=== PATIENT | male | born 1950 | race Caucasian/White ===

== ENCOUNTER 2020-06-30 13:29 | Emergency (ER) | payer OTHER, SELFPAY ==
[2020-06-30] VITALS (23 sets, daily range): BP systolic 137–177; BP diastolic 57–86; PULSE 70–88; RESP 11–24; TEMP 36.7–36.8; O2SAT 81–99
--- NOTE | ~2020-06-30 | CT_ITS ---
EXAMINATION: CT brain wo con DATE: 06/30/2020 14:56 INDICATION: Loss of balance. Fall. TECHNIQUE: Computed tomography (CT) of the head was performed without intravenous contrast. The mA wa s adjusted according to patient size. Iterative reconstruction technique was employed. The dose-lengt h product was 681.00 mGy-cm. COMPARISON: None FINDINGS: There are scattered areas of low attenuation in the cerebral white matter, which is within normal limits for the patient's age. There is no intracranial hemorrhage, acute infarction, or abnorm al intracranial mass lesion. The ventricles are enlarged for the degree of diffuse brain volume loss. There is mild mucosal thickening in the paranasal sinuses. The mastoid air cells are normal. There a re likely changes of ocular lens replacement surgeries. There are changes of right-sided scleral band ing procedure. IMPRESSION: 1. Ventriculomegaly. Correlate clinically for normal pressure hydrocephalus. Reviewed, dictated and finalized at location A. MOTIVE MACHINIST
--- NOTE | ~2020-06-30 | XR_ITS ---
EXAMINATION: XR knee RT 3V DATE: 06/30/2020 14:59 INDICATION: Right knee pain. TECHNIQUE: 3 views of right knee were obtained. COMPARISON: None. FINDINGS: Bone alignment is normal. No fracture. There is mild tricompartmental osteoarthritis charac terized by tiny marginal osteophytes. There is a small knee joint effusion. IMPRESSION: 1. Mild right knee osteoarthritis. 2. Small right knee joint effusion. Reviewed, dictated and finalized at location A. D PROTECTIVE INVESTIGATOR
--- NOTE | ~2020-06-30 | XR_ITS ---
EXAMINATION: XR knee LT 3V DATE: 06/30/2020 14:59 INDICATION: Left knee pain. TECHNIQUE: 3 views of left knee were obtained. COMPARISON: None. FINDINGS: Bone alignment is normal. No fracture. There is mild osteoarthritis of medial compartment c haracterized by a tiny marginal osteophyte. There is a small knee joint effusion. IMPRESSION: 1. Mild left knee osteoarthritis. 2. Small left knee joint effusion. Reviewed, dictated and finalized at location A. RETTE MACHINE FILLER
--- NOTE | 2020-06-30 14:39 | PC.NURSE ---
asked pt for urine sample, pt stated he was unable to go at this time. left urinal at bedside
[2020-06-30 14:42] LABS: Basophils Absolute Auto 0.1 K/mm3 (0.0-0.1); Basophils Percent Auto 0.7 % (0.2-1.2); Eosinophils Absolute Auto 0.1 K/mm3 (0-0.3); Eosinophils Percent Auto 1.2 % (0-4.4); Hematocrit 41.8 % (42.0-52.0); Hemoglobin 13.5 g/dL (14.0-18.0); Immature Granulocyte Absolute 0.03 K/mm3 (0.00-0.031); Immature Granulocyte Percent A 0.3 % (0-0.5); Lymphocytes Absolute Auto 0.84 K/mm3 (0.9-3.2); Lymphocytes Percent Auto 8.3 % (18.3-44.2); Mean Corpuscular HGB Conc 32.3 g/dl (32-36); Mean Corpuscular Volume 86.7 fl (80-100); Mean Platelet Volume 9.8 fl (7.4-10.4); Monocytes Absolute Auto 0.7 K/mm3 (0.1-0.6); Monocytes Percent Auto 6.4 % (2.6-8.5); Neutrophils Absolute Auto 8.4 K/mm3 (1.3-6.7); Neutrophils Percent Auto 83.1 % (45.5-73.1); Platelet Count Result 228 k/mm3 (150-375); Red Blood Count 4.82 M/mm3 (4.6-6.20); White Blood Count 10.1 K/mm3 (4.5-10.0)
--- NOTE | 2020-06-30 14:42 | ED.FALL ---
HPI - Fall General Chief Complaint: Extremity Injury, Lower Stated Complaint: knee pain/fall Time Seen by Provider: 06/30/20 13:35 Source: family Mode of arrival: EMS Limitations: physical limitation History of Present Illness HPI Narrative: 69-year-old male Complains of falling yesterday and hurting his leg however is the primary historian Appears that he has been having progressive difficulty with weakness and ambulation and falling for weeks if not months, has been seeing his doctor in [place], and has been going to PT and OT He has a walker which she usually does not use Yesterday he fell twice, once while he was standing next to his computer holding onto a chair and then just fell onto the floor of the room and a second time when he was walking and fell and bruised his right knee Does not sound like any of these episodes are precipitated by any kind of abrupt vertigo or dizziness or syncope His says there is some kind of family history of leg problems but she does not know what it is Fall witnessed: yes, by family Related Data Home Medications Medication Instructions Recorded Confirmed atorvastatin 06/30/20 cilostazol mg 06/30/20 empagliflozin [Jardiance] 25 mg PO DAILY 06/30/20 06/30/20 glipizide mg 06/30/20 hydralazine 06/30/20 insulin degludec [Tresiba 27 unit SUBCUT 06/30/20 FlexTouch U-100] lisinopril 06/30/20 Allergies Allergy/AdvReac Type Severity Reaction Status Date / Time No Known Allergies Unverified 06/30/20 13:41 Review of Systems Review of Systems: All systems reviewed & are unremarkable except as noted in HPI and below Constitutional: Constitutional: Denies chills, Reports fatigue, Denies fever(s), Denies headache(s) and Reports weakness Eyes: Eyes: Reports no additional eye complaints and Denies change in vision ENT: Denies headache(s), Denies epistaxis, Denies nasal congestion and Denies sore throat Cardiovascular: Cardiovascular: Denies chest pain, Denies leg edema, Denies palpitations and Denies dyspnea Respiratory: Respiratory: Denies cough, Denies dyspnea and Denies wheezing Gastrointestinal: Gastrointestinal: Denies abdominal pain, Denies diarrhea, Denies nausea and Denies vomiting Genitourinary: Genitourinary: Denies hematuria, Denies dysuria and Denies urinary frequency Musculoskeletal: Musculoskeletal: Reports back pain, Reports myalgias, Denies deformity, Reports arthralgias, Reports joint swelling, Reports muscle cramps, Denies muscle weakness and Denies numbness Integumentary/Breasts: Skin/Breast: Denies rash and Denies wounds Neurologic: Denies headache(s), Reports focal weakness (Both legs), Denies numbness and Denies weakness Psychiatric: Psychiatric: Reports no additional psychiatric complaints Endocrine: Endocrine: Denies fatigue and Denies palpitations Hematologic/Lymphatic: Hematologic/Lymphatic: Denies easy bleeding and Denies easy bruising Allergic/Immunologic: Allergic/Immunologic: Denies wheezing PMFSH Family History Family History (Updated 08/07/16 @ 23:56 by DOCTOR UNKNOWN) Sibling Patient's brother is in good health Family history of malignant neoplasm of kidney, Onset Age: 57 Patient's brother is Father Family history of type 2 diabetes mellitus Patient's father is in good health Mother Patient's mother is Social History Social History Smoking status: Never smoker Alcohol intake: current Gender identity (if verbalized by the patient): Male Exam Const: General: no acute distress, well developed, alert and awake HENMT: Head: normal to inspection, normocephalic, atraumatic, no contusions and no hematomas Ears: external ears normal General nose exam: No nasal discharge present and no epistaxis Face and sinus: face symmetric Eyes: Conjunctivae: conjunctivae normal Sclera: sclerae normal EOM: EOMs intact bilaterally Neck: Neck: normal visual inspect
[2020-06-30 14:55] LABS: Anion Gap 4 mmol/L (8-16); Blood Urea Nitrogen 16 mg/dL (9-20); Calcium 8.7 mg/dL (8.4-10.2); Carbon Dioxide 25 mmol/L (22-30); Chloride 108 mmol/L (98-107); Estimated CRCL calculation 54 ml/min; Estimated Glomerular Filt Rate 50; Glucose 105 mg/dL (75-110); Potassium 4.2 mmol/L (3.4-5.0); Sodium 137 mmol/L (137-145)
[2020-06-30 15:08] LABS: Troponin I < 0.012 ng/mL (0.000-0.034)
[2020-06-30 16:18] LABS: Add Urine Microscopic? YES; Appearance Urine Clear (Clear); Bilirubin Urine Negative (Negative); Blood Urine 1+ (Negative); Color Urine Yellow (Yellow); Glucose Urine UA 3+ mg/dL (Negative); Ketones Urine Negative (Negative); Leukocyte Esterase Ur Negative LEU/UL (Negative); Mucus Urine Rare /lpf; Nitrate Urine Negative (Negative); Protein Urine Negative (Negative); Specific Grav Ur 1.013 (1.001-1.035); Urobilinogen Urine Negative mg/dL (<2.0); WBC Urine 0-3 /hpf
--- NOTE | 2020-06-30 19:29 | PC.NURSE ---
called [facility]. to request transport. ETA [id number]. [facility] does not have a truck for transfer.
--- NOTE | 2020-06-30 20:12 | PC.NURSE ---
[facility] ETA update to 2100
--- NOTE | 2020-06-30 21:02 | PC.NURSE ---
[facility] ETA update 10 minutes.
--- NOTE | 2020-06-30 21:09 | PC.NURSE ---
[facility] called with update ETA [phone] due to a 911 call. [facility] decline. [facility] currently unavailable. Can check back in about an hour.
--- NOTE | 2020-06-30 22:18 | PC.NURSE ---
[facility] ETA update 20 minutes
--- NOTE | 2020-06-30 22:48 | PC.NURSE ---
[facility] ETA update midnight. [facility] Accept[facility] trip. ETA drive time from [place].
== END 2020-07-01 00:01 | disposition short-term general hospital (02) ==
PROVIDERS: Emergency Provider Emergency Medicine; PCP Internal Medicine
DX: R27.0 Ataxia, unspecified (principal); G91.2 (Idiopathic) normal pressure hydrocephalus; M17.0 Bilateral primary osteoarthritis of knee; S80.01XA Contusion of right knee, initial encounter; W18.39XA Other fall on same level, initial encounter
CPT/HCPCS: 36415; 70450; 73562; 80048; 81001; 84484; 85025; 99284; 99285

== ENCOUNTER 2020-10-17 12:03 | Observation (INO) | payer OTHER, SELFPAY ==
[2020-10-17] VITALS (18 sets, daily range): BP systolic 122–149; BP diastolic 57–82; PULSE 66–92; RESP 16–22; TEMP 36–36.8; O2SAT 89–100
--- NOTE | ~2020-10-17 | CT_ITS ---
EXAMINATION: CT brain wo con EXAM DATE: 10/17/2020 13:30 INDICATION: Fall, confusion. TECHNIQUE: Spiral CT of the head was performed without contrast. Axial, coronal and sagittal images were reviewed. The dose-length product (DLP) for this examination was 315.48 mGy-cm. The exposure w as tailored according to patient size, and iterative reconstruction (ASIR) was used as additional dos e reduction technique. Large [id number] was utilized. Comparison is made to prior examination from 06/30/2020. FINDINGS: Interval insertion of a right frontal ventricular shunt in position. Ventriculomegaly with slight interval decrease in size of ventricles. No acute intraparenchymal hemorrhage, brain mass or e xtra-axial collections suspected. Bilateral orbital surgical changes. Visualized sinuses, mastoid air cells are well aerated. IMPRESSION: 1. Ventriculomegaly with slight decrease in ventricular size. EQUITY DIRECTOR shunt in position. 2. No acute intracranial findings. Reviewed, dictated and finalized at location B. IMPRESSION: 1. Ventriculomegaly with slight decrease in ventricular size. EQUITY DIRECTOR shunt in posi tion. 2. No acute intracranial findings.
--- NOTE | ~2020-10-17 | XR_ITS ---
EXAMINATION: XR chest 1V EXAM DATE: 10/17/2020 13:31 INDICATION: Fall, fever, transient alteration of awareness. TECHNIQUE: Portable AP frontal chest x-ray was obtained. There is no prior study for comparison. FINDINGS: Linear left midlung zone subsegmental atelectasis. The lungs are otherwise clear. There ar e no pleural effusions. The cardiomediastinal silhouette is within normal limits. There is no pneum othorax suspected. The bones and soft tissues are unremarkable. Ventriculoperitoneal shunt tubing. IMPRESSION: Minimal left basilar atelectasis. Reviewed, dictated and finalized at location B.
--- NOTE | 2020-10-17 12:14 | ECG_ITS ---
Measurements Intervals [place] Rate: 86 P: 103 CO: 131 QRS: 8 QRSD: 142 T: 4 QT: 376 QTc: 452 Interpretive Statements SINUS RHYTHM WITH SINUS ARRHYTHMIA RIGHT BUNDLE BRANCH BLOCK BASELINE ARTIFACT- I, II, III, AVR, AVL, AVF ABNORMAL ECG Electronically Signed On 10-17-2020 13:14:55 CDT by Tushar Lacey D.O.
--- NOTE | 2020-10-17 13:10 | ED.FALL ---
HPI - Fall General Chief Complaint: Fall Stated Complaint: FALL Time Seen by Provider: 10/17/20 12:50 Source: patient, family, EMS and RN notes reviewed Mode of arrival: EMS Limitations: no limitations History of Present Illness HPI Narrative: Patient 69 years old white male brought to the emergency room by ambulance with his from home because of a fall earlier today. Patient went to the bathroom, been feeling weak over the last 48 hours, slipped and fell. Patient did not have his antislipping socks on at that time. Patient denies head injury or loss of consciousness. Patient was on the floor for about half an hour then his called the ambulance. Currently patient is asymptomatic and would like to eat. History of hypertension, diabetes, normal pressure hydrocephalus, status post shunt placement July 2020. Patient denies any fever, chills, nausea, vomiting, headache, chest pain, shortness of breath or back pain. Related Data Home Medications Medication Instructions Recorded Confirmed atorvastatin 06/30/20 cilostazol mg 06/30/20 empagliflozin [Jardiance] 25 mg PO DAILY 06/30/20 06/30/20 insulin degludec [Tresiba 27 unit SUBCUT 06/30/20 FlexTouch U-100] lisinopril 06/30/20 Allergies Allergy/AdvReac Type Severity Reaction Status Date / Time No Known Allergies Unverified 06/30/20 13:41 Review of Systems Review of Systems: Narrative: CONSTITUTIONAL: Denies fever, chills, or sweats. EYES: Denies visual changes, redness, or discharge. ENT: Denies rhinorrhea, congestion, sore throat, or otalgia. CARDIOVASCULAR: Denies chest pain, palpitations, or edema. RESPIRATORY: Denies cough or dyspnea. GASTROINTESTINAL: Denies abdominal pain, nausea, vomiting, or diarrhea. GENITOURINARY: Denies dysuria or hematuria. SKIN: Denies rash or itching. MUSCULOSKELETAL: Denies back pain, joint pain, or myalgia. NEUROLOGIC: Denies headache, numbness, or weakness. PSYCHIATRIC: Denies anxiety or depression. [facility] Family History Family History Sibling Patient's brother is in good health Family history of malignant neoplasm of kidney, Onset Age: 57 Patient's brother is Father Family history of type 2 diabetes mellitus Patient's father is in good health Mother Patient's mother is Social History Social History Smoking status: Never smoker Alcohol intake: current Gender identity (if verbalized by the patient): Male Exam Narrative: Exam Narrative: General appearance: Well-developed, well-nourished Skin: Right forearm skin avulsion r Head: Normocephalic, nontraumatic Eyes: Clear conjunctiva ENT: Oropharynx normal, ears normal, nose normal Neck: Supple, nontender Chest and respiratory: Airway patent, no respiratory distress, no accessory muscle use Heart: Regular rate/rhythm Abdomen: Soft, nontender, no organomegaly, quiet bowel sounds Vascular: Normal peripheral pulses, normal capillary refill. Musculoskeletal: Normal range of motion, nontender back Neurologic: Alert and oriented ?3, KILN FURNITURE SAW TENDER is normal as tested, no gross motor deficit Course Course Emergency Course: Stable Vital Signs Vital signs: Vital Signs Temperature 36.8 C 10/17/20 12:03 Pulse Rate 88 10/17/20 12:03 Respiratory Rate 18 10/17/20 12:03 Blood Pressure 140/82 10/17/20 12:03 Pulse Oximetry 97 10/17/20 12:03 Temperature 36.8 C 10/17/20 12:03 Pulse Rate 76 10/17/20 15:15 Respiratory Rate 21 H 10/17/20 15:15 Blood Pressure 122/76 10/17/20 15:15 Pulse Oximetry 96 10/17/20 15:15 MDM
[2020-10-17 13:14] LABS: Add Urine Microscopic? YES; Appearance Urine Cloudy (Clear); Bacteria Urine Trace /hpf; Bilirubin Urine Negative (Negative); Blood Urine 2+ (Negative); Color Urine Yellow (Yellow); Glucose Urine UA 3+ mg/dL (Negative); Ketones Urine Negative (Negative); Leukocyte Esterase Ur 3+ LEU/UL (Negative); Nitrate Urine Negative (Negative); Protein Urine Negative (Negative); RBC Urine 21-50 /hpf (0-2); Specific Grav Ur 1.023 (1.001-1.035); Squamous Epithelial Cell Urine Occasional /hpf (Few); Urobilinogen Urine Negative mg/dL (<2.0); WBC Clumps Urine Present /HPF; WBC Urine >75 /hpf
[2020-10-17 14:01] LABS: Basophils Absolute Auto 0.1 K/mm3 (0.0-0.1); Basophils Percent Auto 0.6 % (0.2-1.2); Eosinophils Percent Auto 0.1 % (0-4.4); Hematocrit 43.9 % (42.0-52.0); Hemoglobin 14.2 g/dL (14.0-18.0); Immature Granulocyte Absolute 0.04 K/mm3 (0.00-0.031); Immature Granulocyte Percent A 0.4 % (0-0.5); Lymphocytes Percent Auto 6.8 % (18.3-44.2); Mean Corpuscular HGB Conc 32.3 g/dl (32-36); Mean Corpuscular Volume 86.6 fl (80-100); Mean Platelet Volume 10.6 fl (7.4-10.4); Monocytes Absolute Auto 0.6 K/mm3 (0.1-0.6); Monocytes Percent Auto 5.8 % (2.6-8.5); Neutrophils Absolute Auto 8.9 K/mm3 (1.3-6.7); Neutrophils Percent Auto 86.3 % (45.5-73.1); Platelet Count Result 167 k/mm3 (150-375); Red Blood Count 5.07 M/mm3 (4.6-6.20); Red Cell Distribution Width 14.4 % (11.5-14.5); White Blood Count 10.3 K/mm3 (4.5-10.0)
[2020-10-17 14:11] LABS: Alanine Aminotransferase 13 U/L (4-50); Albumin Level 3.9 g/dL (3.5-5.1); Alkaline Phosphatase 118 U/L (38-126); Anion Gap 9 mmol/L (8-16); Aspartate Amino Transferase 16 U/L (17-59); Bilirubin,Total 0.9 mg/dL (0.2-1.3); Blood Urea Nitrogen 13 mg/dL (9-20); Calcium 9.3 mg/dL (8.4-10.2); Carbon Dioxide 23 mmol/L (22-30); Chloride 107 mmol/L (98-107); Creatine Kinase 62 U/L (55-170); Estimated CRCL calculation 63 ml/min; Estimated Glomerular Filt Rate 54; Glucose 234 mg/dL (75-110); Sodium 139 mmol/L (137-145)
[2020-10-17 14:22] LABS: Troponin I 0.021 ng/mL (0.000-0.034)
[2020-10-17 14:37] LABS: Lactic Acid Reflex 1.5 mmol/L (0.7-2.1)
--- NOTE | 2020-10-17 17:16 | ADMGEN ---
This patient, Kirit Tay, was admitted to 2 Medical Room 256-. Patient/family oriented to hospital policies and general routines including ID bracelet, bed and alarms, visiting hours, pain management, procedures, bathroom and other care routines, personal items, smoking policy, room service/diet, and visiting hours. Information on how to activate the Rapid Response Team has been discussed. Patient/Family are encouraged to report perceived risks to care and to ask questions if they do not understand what they are told or what they should do.
[2020-10-17] MEDS: SODIUM CHLORIDE 0.9% IV 1,000 ML 125 ML IV CONT (17:57)
--- NOTE | 2020-10-17 22:42 | PM.IMHP ---
H&P: HPI History of Present Illness Date/Time: 10/17/20 22:42 this is a 69-year-old male patient resides with his . The patient was brought to the emergency room by ambulance with his from home because he had a fall earlier today. The patient was trying to get to the bathroom any started to feel weak and fell on the floor. The patient laid on the floor for about half an hour before the ambulance got there. Patient stated that he has been feeling weak over the last 48 hours. The patient was asymptomatic when he got to the emergency room and was asking for something to eat. The patient has a history of having a DIRECTOR OF FAMILY SERVICE CENTER shunt for normal-pressure hydrocephalus. Patient had a shunt placed July of this year. Head CT was read as ventriculomegaly with slight decrease in ventricular size. [facility]OR OF [facility]ILY [facility]ICE C[facility] shunt and position. No acute intracranial findings. Chest x-ray was read as minimal left basilar atelectasis. The patient was found have a urinary tract infection and he was started on ceftriaxone. The patient is also diabetic and his blood sugar was in the 200s today. The patient is being admitted for observation status on the date of service of 10/17/2020 Chief Complaint: Weakness Review of Systems Review of Systems: All systems reviewed & are unremarkable except as noted in HPI and below Constitutional: Constitutional: Reports as per HPI and Reports no additional constitutional complaints Eyes: Eyes: Reports as per HPI and Reports no additional eye complaints ENT: Reports system reviewed and no additional complaints, except as documented and Reports Normal hearing present Cardiovascular: Cardiovascular: Reports no additional cardiovascular complaints Respiratory: Respiratory: Reports no additional respiratory complaints and Reports no additional respiratory complaints Gastrointestinal: Gastrointestinal: Reports as per HPI and Reports no additional gastrointestinal complaints Musculoskeletal: Musculoskeletal: Reports no additional musculoskeletal complaints Integumentary/Breasts: Skin/Breast: Reports system reviewed and no additional complaints, except as docu and Reports as per HPI Neurologic: Reports system reviewed and no additional complaints, except as documented, Reports as per HPI and Reports Normal hearing present Psychiatric: Psychiatric: Reports no additional psychiatric complaints and Reports as per HPI Endocrine: Endocrine: Reports no additional endocrine complaints Hematologic/Lymphatic: Hematologic/Lymphatic: Reports no additional hematologic/lymphatic complaints Allergic/Immunologic: Allergic/Immunologic: Reports no additional allergic/immunologic complaints [facility] Past Medical History Medical History (Updated 10/17/20 @ 22:54 by Kate A. Benhoff, FIRE BATTALION CHIEF) DM2 (diabetes mellitus, type 2) Hydrocephalus Normal pressure Hyperlipidemia Hypertension Surgical History Surgical History (Updated 10/17/20 @ 22:54 by Kate Swain NP) H/O cataract extraction S/P [employer] [employer] [facility] shunt Family History Family History (Updated 10/17/20 @ 22:55 by Kate Swain NP) Sibling Family history of malignant neoplasm of kidney, Onset Age: 57 Patient's brother is Father Family history of type 2 diabetes mellitus Mother Patient's mother is Brain bleed Social History Social History (Updated 10/17/20 @ 22:56 by Kate Swain NP) Social History: The patient lives with his who is a durable power insurance defense attorney for healthcare. 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 He desires to be a full code. Lifelong nonsmoker. The patient denies any alcohol intake. He denies any marijuana use or illicit drugs. Smoking status: Never smoker Alcohol intake: never Substance use: never Gender identity (if verbalized by the patient): Male Spiritual care concerns: No Meds Home Medications and Allergies Home Medications Medication Instructions Recorded Confirmed Type atorvastatin 40 mg P
[2020-10-18] VITALS (8 sets, daily range): BP systolic 105–159; BP diastolic 52–75; PULSE 65–93; RESP 14–18; TEMP 36.3–36.7; O2SAT 95–100
[2020-10-18 05:59] LABS: Basophils Absolute Auto 0.1 K/mm3 (0.0-0.1); Basophils Percent Auto 0.9 % (0.2-1.2); Eosinophils Absolute Auto 0.2 K/mm3 (0-0.3); Eosinophils Percent Auto 2.4 % (0-4.4); Hematocrit 38.2 % (42.0-52.0); Immature Granulocyte Absolute 0.02 K/mm3 (0.00-0.031); Immature Granulocyte Percent A 0.3 % (0-0.5); Lymphocytes Absolute Auto 1.47 K/mm3 (0.9-3.2); Lymphocytes Percent Auto 20.9 % (18.3-44.2); Mean Corpuscular HGB Conc 31.4 g/dl (32-36); Mean Corpuscular Hemoglobin 27.5 pg (26-34); Mean Corpuscular Volume 87.6 fl (80-100); Mean Platelet Volume 10.6 fl (7.4-10.4); Monocytes Absolute Auto 0.7 K/mm3 (0.1-0.6); Monocytes Percent Auto 9.2 % (2.6-8.5); Neutrophils Absolute Auto 4.7 K/mm3 (1.3-6.7); Neutrophils Percent Auto 66.3 % (45.5-73.1); Platelet Count Result 154 k/mm3 (150-375); Red Blood Count 4.36 M/mm3 (4.6-6.20); White Blood Count 7.1 K/mm3 (4.5-10.0)
[2020-10-18 06:00] LABS: Hemoglobin A1C 7.9 % (<5.7)
[2020-10-18 06:10] LABS: Bilirubin,Total 0.6 mg/dL (0.2-1.3); Blood Urea Nitrogen 11 mg/dL (9-20); Carbon Dioxide 24 mmol/L (22-30); Estimated CRCL calculation 73 ml/min; Estimated Glomerular Filt Rate > 60
[2020-10-18] MEDS: SODIUM CHLORIDE 0.9% IV 1,000 ML 125 ML IV CONT (06:16)
[2020-10-18 06:21] LABS: Alanine Aminotransferase 9 U/L (4-50); Alkaline Phosphatase 90 U/L (38-126); Anion Gap 9 mmol/L (8-16); Aspartate Amino Transferase 14 U/L (17-59); Calcium 8.6 mg/dL (8.4-10.2); Chloride 110 mmol/L (98-107); Glucose 112 mg/dL (75-110); Magnesium 1.9 mg/dL (1.6-2.3); Potassium 3.6 mmol/L (3.4-5.0); Sodium 143 mmol/L (137-145)
[2020-10-18] MEDS: CHOLECALCIFEROL 1,000 UNITS TABLET 2000 UNITS PO (08:46)
[2020-10-18] MEDS: lisinopriL 20 MG TABLET 40 MG PO (08:47)
[2020-10-18] MEDS: ATORVASTATIN 40 MG TABLET PO (08:47)
[2020-10-18] MEDS: cilostazoL 100 MG TABLET PO ×2 (10:04→18:48)
[2020-10-18] MEDS: SODIUM CHLORIDE 0.9% IV 1,000 ML 100 ML IV CONT ×2 (10:06→20:35)
--- NOTE | 2020-10-18 13:32 | PCNSR ---
On 10/18/20, the student, Joselyn Mir, provided care and completed [facility] documentation on this patient. I have reviewed the student's documentation and agree with the findings.
--- NOTE | 2020-10-18 13:32 | PHAR ---
HOME MED VERIFIED JARDIANCE 25MG TABLETS 1 DAILY TRESIBA 100 UNITS/ML INJECT 20 UNITS SQ DAILY
--- NOTE | 2020-10-18 14:21 | PM.IMPN ---
Progress Note: A&P Assessment and Plan (1) Urinary tract infection: Qualifiers: Hematuria presence: with hematuria Urinary tract infection type: site unspecified Qualified Code(s): N39.0 - Urinary tract infection, site not specified; R31.9 - Hematuria, unspecified Code(s): N39.0 - Urinary tract infection, site not specified Status: Acute Assessment and Plan: Urinalysis is abnormal at presentation. Afebrile. Mild leukocytosis has resolved. Continue IV Rocephin Await results of urine culture and tailor antibiotics accordingly Blood cultures collected and are pending Will discontinue IV fluids as he is tolerating oral intake (2) Fall: Qualifiers: Encounter type: subsequent encounter Qualified Code(s): W19.XXXD - Unspecified fall, subsequent encounter Code(s): W19.XXXA - Unspecified fall, initial encounter Status: Acute Assessment and Plan: Mechanical fall at home due to slipping in the bathroom. He was on the ground for about a half an hour. He is unable to state whether not he hit his head. Head CT was negative for acute findings. CK is 62. Fall precautions Appreciate PT/OT eval (3) DM2 (diabetes mellitus, type 2): Code(s): E11.9 - Type 2 diabetes mellitus without complications Status: Chronic Assessment and Plan: A1c is 7.9. Blood sugars reviewed and is stable today. Continue Accu-Cheks, sliding scale insulin, and hypoglycemic protocol Tresiba is non formulary. Transition to Lantus with 20% dose reduction. Home Jardiance is on hold (4) Hypertension: Code(s): I10 - Essential (primary) hypertension Status: Chronic Assessment and Plan: Blood pressures reviewed and these have been fluctuant. Last BP 105/52. Continue home lisinopril (5) Weakness: Code(s): R53.1 - Weakness Status: Acute Assessment and Plan: Possibly related to acute UTI, also suspect overall physical deconditioning Continue with treatment for UTI as described above Appreciate PT/OT eval (6) Hydrocephalus: Code(s): G91.9 - Hydrocephalus, unspecified Status: Chronic Assessment and Plan: He is status post FEED AND FARM MANAGEMENT ADVISER shunt placement in July 2020. Head CT showed decrease in ventricular size and FEED AND FARM MANAGEMENT ADVISER shunt in expected position. Subjective Date/time seen: 10/18/20 14:21 Interval history: Date of service: 10/18/2020 Kirit Tay is a 69-year-old male with history of type 2 diabetes, hydrocephalus s/p FEED AND FARM MANAGEMENT ADVISER shunt, hyperlipidemia, and hypertension who is seen in follow-up for fall and UTI. He is feeling okay today. He tells me he has had difficulty walking and overall feels weak. He also complains of dysuria. He denies suprapubic pain, flank pain, back pain, hematuria, urgency, or frequency. He denies dizziness or lightheadedness. He denies pain in his legs. He denies any body aches or pains. He denies headache. No shortness of breath, cough, or chest pain. No abdominal pain, nausea, vomiting fever, or chills. Reports he has been eating well today. He has no other concerns at this time. Review of Systems Review of Systems: All systems reviewed & are unremarkable except as noted in HPI and below Exam Narrative: Exam Narrative: Mr. Tay is a well-nourished, well-appearing 69-year-old male who is lying semi recumbent in bed. He appears comfortable and is in NARD. Neuro: awake, alert and oriented x4, speech clear, no focal neuro deficits noted HEENMT: normocephalic, atraumatic, EOMI, sclerae anicteric, FEED AND FARM MANAGEMENT ADVISER shunt palpable in right temporal region Neck: supple, no lymphadenopathy Respiratory: clear to auscultation bilaterally, nonlabored breathing Cardio: regular rate, regular rhythm with S1-S2 Abdomen: nondistended, normoactive bowel sounds, soft, nontender to palpation, no rigidity or guarding : no CVA tenderness Extremities: no edema, erythema, cyanosis, clubbing, or t
[2020-10-18] MEDS: INSULIN GLARGINE (*BKC) 100 UNITS/ML 16 UNITS SUB-Q (20:50)
[2020-10-19] VITALS (7 sets, daily range): BP systolic 115–164; BP diastolic 63–77; PULSE 63–83; RESP 17–20; TEMP 36.1–37.3; O2SAT 96–100
[2020-10-19 06:15] LABS: Hematocrit 37.3 % (42.0-52.0); Hemoglobin 11.9 g/dL (14.0-18.0); Mean Corpuscular HGB Conc 31.9 g/dl (32-36); Mean Corpuscular Volume 87.8 fl (80-100); Mean Platelet Volume 10.8 fl (7.4-10.4); Platelet Count Result 163 k/mm3 (150-375); Red Blood Count 4.25 M/mm3 (4.6-6.20); White Blood Count 8.3 K/mm3 (4.5-10.0)
[2020-10-19 06:16] LABS: Anion Gap 6 mmol/L (8-16); Blood Urea Nitrogen 11 mg/dL (9-20); Calcium 8.2 mg/dL (8.4-10.2); Carbon Dioxide 24 mmol/L (22-30); Chloride 111 mmol/L (98-107); Estimated CRCL calculation 73 ml/min; Estimated Glomerular Filt Rate > 60; Glucose 119 mg/dL (75-110); Potassium 3.6 mmol/L (3.4-5.0); Sodium 141 mmol/L (137-145)
[2020-10-19] MEDS: SODIUM CHLORIDE 0.9% IV 1,000 ML 100 ML IV CONT (07:00)
[2020-10-19] MEDS: ATORVASTATIN 40 MG TABLET PO (08:13)
[2020-10-19] MEDS: lisinopriL 20 MG TABLET 40 MG PO (08:13)
[2020-10-19] MEDS: CHOLECALCIFEROL 1,000 UNITS TABLET 2000 UNITS PO (08:13)
[2020-10-19] MEDS: cilostazoL 100 MG TABLET PO ×2 (10:40→19:12)
[2020-10-19] MEDS: TOLNAFTATE 1% POWDER 45 GM BTL 1 APPLIC TOPICAL ×2 (11:57→20:45)
[2020-10-19] MEDS: INSULIN ASPART (*BKC) 100 UNITS/ML SUB-Q (12:00)
--- NOTE | 2020-10-19 15:38 | PM.IMPN ---
Progress Note: A&P Assessment and Plan (1) Urinary tract infection: Qualifiers: Hematuria presence: with hematuria Urinary tract infection type: site unspecified Qualified Code(s): N39.0 - Urinary tract infection, site not specified; R31.9 - Hematuria, unspecified Code(s): N39.0 - Urinary tract infection, site not specified Status: Acute Assessment and Plan: Urinalysis is abnormal at presentation. Afebrile. Mild leukocytosis has resolved. Urine culture with growth of >100k Enterococcus species Transition to IV vancomycin based on susceptibilities Blood cultures negative to date. Final cultures will be monitored (2) Fall: Qualifiers: Encounter type: subsequent encounter Qualified Code(s): W19.XXXD - Unspecified fall, subsequent encounter Code(s): W19.XXXA - Unspecified fall, initial encounter Status: Acute Assessment and Plan: Mechanical fall at home due to slipping in the bathroom. He was on the ground for about a half an hour. He is unable to state whether or not he hit his head. Head CT was negative for acute findings. CK is 62. Fall precautions Appreciate PT/OT eval (3) DM2 (diabetes mellitus, type 2): Code(s): E11.9 - Type 2 diabetes mellitus without complications Status: Chronic Assessment and Plan: A1c is 7.9. Blood sugars reviewed and are stable today. Continue Accu-Cheks, sliding scale insulin, and hypoglycemic protocol Tresiba is non formulary. Continue Lantus with 20% dose reduction. Home Jardiance is on hold (4) Hypertension: Code(s): I10 - Essential (primary) hypertension Status: Chronic Assessment and Plan: Blood pressures reviewed and these have been fluctuant, running higher today. Last BP 158/68 Continue home lisinopril (5) Weakness: Code(s): R53.1 - Weakness Status: Acute Assessment and Plan: Possibly related to acute UTI, also suspect overall physical deconditioning Continue with treatment for UTI as described above Appreciate PT/OT eval. Planning for home health. Hopeful discharge tomorrow if continued improvement (6) Hydrocephalus: Code(s): G91.9 - Hydrocephalus, unspecified Status: Chronic Assessment and Plan: He is status post GLOVE FORMER shunt placement in July 2020. Head CT showed decrease in ventricular size and GLOVE FORMER shunt in expected position. Subjective Date/time seen: 10/19/20 15:39 Interval history: Date of service: 10/19/2020 Kirit Tay is a 69-year-old male with history of type 2 diabetes, hydrocephalus s/p GLOVE FORMER shunt, hyperlipidemia, and hypertension who is seen in follow-up for fall and UTI. He is feeling about the same today. He was able to get up with therapy and walk around. He feels improvement with his mobility. He denies weakness, dizziness, lightheadedness. Denies any urinary symptoms. No fevers or chills. He has been eating well. No abdominal pain, nausea, or vomiting. Denies shortness breath, cough, chest pain. His is present at the bedside. She is slightly concerned about him going home because she is worried about falls. Review of Systems Review of Systems: All systems reviewed & are unremarkable except as noted in HPI and below Exam Narrative: Exam Narrative: Mr. Tay is a well-nourished, well-appearing 69-year-old male who is lying semi recumbent in bed. He appears comfortable and is in NARD. Neuro: awake, alert and oriented x4, speech clear, no focal neuro deficits noted HEENMT: normocephalic, atraumatic, EOMI, sclerae anicteric, GLOVE FORMER shunt palpable in right temporal region Respiratory: clear to auscultation bilaterally, nonlabored breathing Cardio: regular rate, regular rhythm with S1-S2 Abdomen: nondistended, normoactive bowel sounds, soft, nontender to palpation, no rigidity or guarding Extremities: no edema, erythema, cyanosis, clubbing, or tenderness to palpatio
--- NOTE | 2020-10-19 20:50 | PC.NURSE ---
pt HS blood sugar was 173
[2020-10-20 01:14] VITALS: BP 160/70; PULSE 70; RESP 20; TEMP 36.3; O2SAT 95
[2020-10-20 06:00] VITALS: BP 159/75; PULSE 58; RESP 18; TEMP 36.3; O2SAT 99
--- NOTE | 2020-10-20 07:57 | PC.NURSE ---
Patient's blood sugar was 158. Patient does not need any insulin. Blood sugar is not transferring to the computer. Will notify IT.
[2020-10-20] MEDS: CHOLECALCIFEROL 1,000 UNITS TABLET 2000 UNITS PO (08:00)
[2020-10-20] MEDS: ATORVASTATIN 40 MG TABLET PO (08:00)
[2020-10-20] MEDS: lisinopriL 20 MG TABLET 40 MG PO (08:01)
[2020-10-20] MEDS: TOLNAFTATE 1% POWDER 45 GM BTL 1 APPLIC TOPICAL (08:02)
[2020-10-20] MEDS: cilostazoL 100 MG TABLET PO (09:34)
[2020-10-20 10:00] VITALS: BP 130/64; PULSE 80; RESP 16; TEMP 36.2; O2SAT 98
--- NOTE | 2020-10-20 11:18 | PC.NURSE ---
Patient blood sugar is 210.
--- NOTE | 2020-10-20 11:25 | PM.DS ---
DS: Admitting Diagnosis Admitting Diagnosis Admitting Diagnosis: UTI DS: Discharge Diagnosis Discharge Diagnosis (1) Urinary tract infection: Qualifiers: Hematuria presence: with hematuria Urinary tract infection type: site unspecified Qualified Code(s): N39.0 - Urinary tract infection, site not specified; R31.9 - Hematuria, unspecified Code(s): N39.0 - Urinary tract infection, site not specified Status: Acute Assessment and Plan: Urinalysis was abnormal at presentation with mild leukocytosis. He was started on empiric IV Rocephin. Urine culture with growth of >100k Enterococcus species, therefore transitioned to IV vancomycin based on susceptibilities. He will continue p.o. ampicillin to complete a course of antibiotics. Blood cultures negative. (2) Fall: Qualifiers: Encounter type: subsequent encounter Qualified Code(s): W19.XXXD - Unspecified fall, subsequent encounter Code(s): W19.XXXA - Unspecified fall, initial encounter Status: Acute Assessment and Plan: Mechanical fall at home due to slipping in the bathroom. He was on the ground for about a half an hour. He was unable to state whether or not he hit his head. Head CT was negative for acute findings. CK 62. He was evaluated by PT/OT and home health care was arranged for ongoing therapy. Fall precautions discussed. (3) DM2 (diabetes mellitus, type 2): Code(s): E11.9 - Type 2 diabetes mellitus without complications Status: Chronic Assessment and Plan: A1c is 7.9. Blood sugars reviewed and remained stable on sliding scale insulin and Lantus. Continue home Jardiance and Tresiba. (4) Hypertension: Code(s): I10 - Essential (primary) hypertension Status: Chronic Assessment and Plan: Blood pressures reviewed and were generally well controlled. Continue home lisinopril (5) Weakness: Code(s): R53.1 - Weakness Status: Acute Assessment and Plan: Likely related to acute UTI, also suspect overall physical deconditioning. PT/OT as above. Home with home health. (6) Hydrocephalus: Code(s): G91.9 - Hydrocephalus, unspecified Status: Chronic Assessment and Plan: He is status post FEATHER BALER shunt placement in July 2020. Head CT showed decrease in ventricular size and FEATHER BALER shunt in expected position. DS: Summary Hospital Course Hospital Course: Date of admission: 10/17/2020 Date of discharge: 10/20/2020 Kirit Tay is a 69-year-old male with history of type 2 diabetes, hydrocephalus s/p FEATHER BALER shunt, hyperlipidemia, and hypertension who presented to the emergency department on 10/17/2020 after suffering a fall in his bathroom. He had been feeling weak over the past 48 hours. Upon presentation to the emergency department, his vital signs are stable, he was afebrile, white blood cell count was 10.3, additional CBC and BMP unremarkable, lactic 1.5, urinalysis abnormal, head CT showed ventriculomegaly with no acute findings and CXR showed minimal left basilar atelectasis. He was admitted to the hospitalist service for further evaluation and management. Please see above for further details. He was treated with IV antibiotics for UTI and was evaluated by PT/OT. Home health was arranged. He was feeling better and requested discharge home. Given his overall improvement, he was determined to no longer require inpatient care. He was felt to be stable for discharge. Discussed with patient and his worrisome signs symptoms to return and educated on medications. He was discharged in hemodynamically stable condition on 10/20/2020. Status at Discharge Functional status at discharge: uses cane/walker Overall status at discharge: patient is progressing back to baseline Time Spent with Patient Time attestation: Total time spent providing and/or coordinating discharge services: 45 minutes Time spent: Greater than 30 minutes Exam Na
[2020-10-20] MEDS: INSULIN ASPART (*BKC) 100 UNITS/ML SUB-Q (11:50)
[2020-10-21 07:50] LABS: Glucose Point of Care 210 mg/dl (65-105)
[2020-10-21 07:51] LABS: Glucose Point of Care 158 mg/dl (65-105)
[2020-10-21 07:51] LABS: Glucose Point of Care 173 mg/dl (65-105)
[2020-10-21 07:51] LABS: Glucose Point of Care 144 mg/dl (65-105)
[2020-10-21 07:52] LABS: Glucose Point of Care 186 mg/dl (65-105)
[2020-10-21 07:53] LABS: Glucose Point of Care 96 mg/dl (65-105)
[2020-10-21 07:53] LABS: Glucose Point of Care 109 mg/dl (65-105)
[2020-10-21 07:53] LABS: Glucose Point of Care 211 mg/dl (65-105)
[2020-10-21 07:54] LABS: Glucose Point of Care 167 mg/dl (65-105)
[2020-10-21 07:54] LABS: Glucose Point of Care 190 mg/dl (65-105)
[2020-10-21 07:54] LABS: Glucose Point of Care 224 mg/dl (65-105)
[2020-10-21 07:55] LABS: Glucose Point of Care 125 mg/dl (65-105)
[2020-10-21 07:55] LABS: Glucose Point of Care 129 mg/dl (65-105)
== END 2020-10-20 14:20 | disposition home health service (06) ==
LOC: ANHED 15:30 → ANH2MED 17:02
PROVIDERS: Emergency Medicine; Nurse Practitioner; Admitting Provider Family Medicine; Emergency Provider Emergency Medicine; PCP Internal Medicine; Visit Provider Physician Assistant
DX: N39.0 Urinary tract infection, site not specified (principal); R53.1 Weakness; B95.2 Enterococcus as the cause of diseases classified elsewhere; W01.0XXA Fall on same level from slipping, tripping and stumbling without subsequent striking against object, initial encounter; I10 Essential (primary) hypertension; E11.9 Type 2 diabetes mellitus without complications; Z98.2 Presence of cerebrospinal fluid drainage device; G91.2 (Idiopathic) normal pressure hydrocephalus; Z79.4 Long term (current) use of insulin; E78.5 Hyperlipidemia, unspecified
CPT/HCPCS: 36415; 51701; 70450; 71045; 80048; 80053; 81001; 82550; 82948; 83036; 83605; 83735; 84484; 85025; 85027; 85610; 87040; 87086; 87147; 87181; 87186; 93005; 96361; 96365; 96366; 96367; 97110; 97116; 97161; 97165; 97530; 97535; 99285; A9270; G0378; J0696; J1815; J3370; J7030

== ENCOUNTER 2020-10-29 16:01 | Observation (INO) | payer OTHER, SELFPAY ==
[2020-10-29] VITALS (23 sets, daily range): BP systolic 123–166; BP diastolic 47–77; PULSE 70–86; RESP 16–22; TEMP 36–37; O2SAT 92–99; BMI 26.1
--- NOTE | ~2020-10-29 | CT_ITS ---
EXAMINATION: CT brain wo con EXAM DATE: 10/29/2020 19:58 INDICATION: Generalized weakness for 2 weeks. TECHNIQUE: Spiral CT of the head was performed without contrast. Axial, coronal and sagittal images were reviewed. The dose-length product (DLP) for this examination was 605.33 mGy-cm. The exposure w as tailored according to patient size, and iterative reconstruction (ASIR) was used as additional dos e reduction technique. Comparison is made to prior examination from 10/17/2020. FINDINGS: There is a right frontal ventriculoperitoneal shunt in position. The ventricles are dilated out of proportion to the sulci, but unchanged compared to previous examination. No brain mass, acute intracranial hemorrhage, extra-axial collections. There is mild microangiopathy. Ocular surgical jamee nges. IMPRESSION: 1. No acute intracranial findings or interval change. 2. Ventricular shunt in position with chronic ventricular dilation. Reviewed, dictated and finalized at location A.
--- NOTE | 2020-10-29 16:19 | ECG_ITS ---
Measurements Intervals Story Rate: 81 P: 29 MD: 127 QRS: 59 QRSD: 146 T: 51 QT: 414 QTc: 482 Interpretive Statements SINUS RHYTHM ATRIAL COUPLET AND SUPRAVENTRICULAR BIGEMINY RIGHT BUNDLE BRANCH BLOCK BASELINE ARTIFACT- I, II, III, AVR, AVL, AVF, V1-V6 ABNORMAL ECG Electronically Signed On 10-29-2020 19:15:08 CDT by Tushar Lacey D.O.
--- NOTE | 2020-10-29 17:03 | ED.GENADULT ---
HPI - General Adult General Chief complaint: Weakness Stated complaint: WEAKNESS Time Seen by Provider: 10/29/20 16:12 Source: patient History of Present Illness HPI narrative: Patient is a 69 y/o male complaining several generalized weakness for last 2 weeks. He states that he had an UTI recently and it seems to have made him weaker. He has no fever, chill, pain or focal weakness. He is able to move both legs, however, he is not able to ambulate. Related Data Home Medications Medication Instructions Recorded Confirmed Jardiance 25 mg PO DAILY 06/30/20 10/17/20 Tresiba FlexTouch U-100 20 unit SUBCUT DAILY 06/30/20 10/17/20 atorvastatin 40 mg PO DAILY 06/30/20 10/17/20 cilostazol 100 mg PO BID 06/30/20 10/17/20 lisinopril 40 mg PO DAILY 06/30/20 10/17/20 cholecalciferol (vitamin D3) 50 mcg PO DAILY 10/17/20 10/17/20 Allergies Allergy/AdvReac Type Severity Reaction Status Date / Time No Known Allergies Verified 10/17/20 18:31 Review of Systems Constitutional: Constitutional: Denies chills, Denies fever(s), Denies headache(s) and Reports weakness Eyes: Eyes: Denies blurry vision ENT: Denies headache(s) and Denies neck pain Cardiovascular: Cardiovascular: Denies chest pain and Denies dyspnea Respiratory: Respiratory: Denies cough and Denies dyspnea Gastrointestinal: Gastrointestinal: Denies abdominal pain, Denies diarrhea, Denies nausea and Denies vomiting Genitourinary: Genitourinary: Denies hematuria and Denies dysuria Musculoskeletal: Musculoskeletal: Denies back pain and Denies neck pain Neurologic: Denies headache(s) and Reports weakness [facility] Past Medical History Medical History DM2 (diabetes mellitus, type 2) Hydrocephalus Normal pressure Hyperlipidemia Hypertension Surgical History Surgical History H/O cataract extraction 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 He desires to be a full code. Lifelong nonsmoker. The patient denies any alcohol intake. He denies any marijuana use or illicit drugs. Smoking status: Never smoker Alcohol intake: never Substance use: never Gender identity (if verbalized by the patient): Male Spiritual care concerns: No Exam Const: General: no acute distress and well developed Orientation/consciousness: oriented to person, oriented to place, oriented to time and patient oriented x3 HENMT: Head: normocephalic Ears: external ears normal General nose exam: Normal external nose present Eyes: General: appearance normal, both eyes and all related structures Conjunctivae: conjunctivae normal Neck: Neck: normal visual inspection and full ROM Chest: Chest palpation & inspection: normal inspection of the chest and no tenderness Resp: Effort & Inspection: normal respiratory effort Auscultation: clear to auscultation bilaterally Cardio: Rate: regular rate Rhythm: regular rhythm GI: GI Palp: No abdominal tenderness and Yes Soft to palpation Skin: General skin exam: normal color and turgor normal Neuro: General: oriented to person, oriented to place, oriented to time and patient oriented x3 Cranial nerves: Yes CN's II-XII intact bilaterally Cognition (Neuro): normal cognition Speech: normal speech Motor exam (neuro): 5/5 motor strength present throughout Sensory Exam: normal sensation Coordination: [id number] test normal and [id number] test norm
[2020-10-29 17:13] LABS: Basophils Absolute Auto 0.1 K/mm3 (0.0-0.1); Basophils Percent Auto 0.6 % (0.2-1.2); Eosinophils Absolute Auto 0.3 K/mm3 (0-0.3); Eosinophils Percent Auto 2.5 % (0-4.4); Hematocrit 38.6 % (42.0-52.0); Hemoglobin 12.2 g/dL (14.0-18.0); Immature Granulocyte Absolute 0.05 K/mm3 (0.00-0.031); Immature Granulocyte Percent A 0.5 % (0-0.5); Lymphocytes Absolute Auto 1.47 K/mm3 (0.9-3.2); Lymphocytes Percent Auto 14.3 % (18.3-44.2); Mean Corpuscular HGB Conc 31.6 g/dl (32-36); Mean Corpuscular Hemoglobin 27.8 pg (26-34); Mean Corpuscular Volume 87.9 fl (80-100); Mean Platelet Volume 9.9 fl (7.4-10.4); Monocytes Absolute Auto 0.7 K/mm3 (0.1-0.6); Monocytes Percent Auto 6.9 % (2.6-8.5); Neutrophils Absolute Auto 7.7 K/mm3 (1.3-6.7); Neutrophils Percent Auto 75.2 % (45.5-73.1); Platelet Count Result 270 k/mm3 (150-375); Red Blood Count 4.39 M/mm3 (4.6-6.20); Red Cell Distribution Width 14.2 % (11.5-14.5); White Blood Count 10.3 K/mm3 (4.5-10.0)
[2020-10-29 17:24] LABS: Alanine Aminotransferase 13 U/L (4-50); Albumin Level 3.4 g/dL (3.5-5.1); Alkaline Phosphatase 99 U/L (38-126); Anion Gap 6 mmol/L (8-16); Aspartate Amino Transferase 26 U/L (17-59); Bilirubin,Total 0.4 mg/dL (0.2-1.3); Blood Urea Nitrogen 17 mg/dL (9-20); Calcium 8.6 mg/dL (8.4-10.2); Carbon Dioxide 26 mmol/L (22-30); Chloride 104 mmol/L (98-107); Estimated CRCL calculation 47 ml/min; Estimated Glomerular Filt Rate 46; Glucose 209 mg/dL (75-110); Sodium 136 mmol/L (137-145)
[2020-10-29 17:34] LABS: Add Urine Microscopic? YES; Appearance Urine Cloudy (Clear); Bacteria Urine Trace /hpf; Bilirubin Urine Negative (Negative); Blood Urine 1+ (Negative); Budding Yeast Urine Present /hpf; Color Urine Yellow (Yellow); Glucose Urine UA 3+ mg/dL (Negative); Ketones Urine Negative (Negative); Leukocyte Esterase Ur 3+ LEU/UL (Negative); Nitrate Urine Negative (Negative); Protein Urine 1+ mg/dL (Negative); Specific Grav Ur 1.017 (1.001-1.035); Squamous Epithelial Cell Urine Rare /hpf (Few); Urobilinogen Urine Negative mg/dL (<2.0); WBC Urine >75 /hpf
[2020-10-29] MEDS: SODIUM CHLORIDE 0.9% IV 1,000 ML 999 ML IV CONT (18:36)
[2020-10-29] MEDS: SODIUM CHLORIDE 0.9% IV 1,000 ML 125 ML IV CONT (22:34)
--- NOTE | 2020-10-29 23:02 | ADMGEN ---
This patient, Kirit Tay, was admitted to Medical Room 247-. Patient/family oriented to hospital policies and general routines including ID bracelet, bed and alarms, visiting hours, pain management, procedures, bathroom and other care routines, personal items, smoking policy, room service/diet, and visiting hours. Information on how to activate the Rapid Response Team has been discussed. Patient/Family are encouraged to report perceived risks to care and to ask questions if they do not understand what they are told or what they should do.
[2020-10-30] VITALS: BP 153/84; PULSE 68; RESP 20; TEMP 36.2; O2SAT 100
[2020-10-30 04:00] VITALS: BP 157/65; PULSE 70; RESP 20; TEMP 36.1; O2SAT 98
[2020-10-30 05:21] VITALS: BP 138/79; PULSE 90; RESP 20; TEMP 35.9; O2SAT 97
--- NOTE | 2020-10-30 05:48 | PC.NURSE ---
Pt incontinent about [address] Yañez request bladder scan be done which showed 85cc urine.
[2020-10-30 06:03] LABS: Anion Gap 7 mmol/L (8-16); Blood Urea Nitrogen 13 mg/dL (9-20); Calcium 8.3 mg/dL (8.4-10.2); Carbon Dioxide 24 mmol/L (22-30); Chloride 110 mmol/L (98-107); Estimated CRCL calculation 53 ml/min; Estimated Glomerular Filt Rate 54; Glucose 126 mg/dL (75-110); Sodium 141 mmol/L (137-145)
--- NOTE | 2020-10-30 08:35 | PM.IMHP ---
H&P: HPI History of Present Illness Date/Time: 10/30/20 08:35 Chief Complaint: Generalized weakness Narrative: 70 years old male was admitted through the emergency room with complaints of having generalized weakness going on for the last 2 days. According to the patient since he was discharged from the hospital few weeks ago he never completely recovered. For the last few days he was having increase frequency of urination and burning urination. No shortness of breath or chest pain. No fever. No abdominal pain, no nausea, no vomiting. Mood stable. 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 He desires to be a full code. Lifelong nonsmoker. The patient denies any alcohol intake. He denies any marijuana use or illicit drugs. Smoking status: Never smoker Alcohol intake: never Substance use: never Gender identity (if verbalized by the patient): Male Spiritual care concerns: No Meds Home Medications and Allergies Home Medications Medication Instructions Recorded Confirmed Type Jardiance 25 mg PO DAILY 06/30/20 10/29/20 History Tresiba FlexTouch U-100 20 unit SUBCUT HS 06/30/20 10/29/20 History atorvastatin 40 mg PO DAILY 06/30/20 10/29/20 History cilostazol 100 mg PO BID 06/30/20 10/29/20 History lisinopril 40 mg PO DAILY 06/30/20 10/29/20 History cholecalciferol (vitamin D3) 50 mcg PO DAILY 10/17/20 10/29/20 History Allergies Allergy/AdvReac Type Severity Reaction Status Date / Time No Known Allergies Verified 10/17/20 18:31 Vital Signs Vital Signs - 24 hr 10/29/20 16:01 10/29/20 16:10 10/29/20 16:25 Temperature 37.0 C Pulse Rate 86 86 81 Respiratory Rate 18 20 Blood Pressure 136/65 Pulse Oximetry 96 94 93 10/29/20 16:30 10/29/20 16:53 10/29/20 17:03 Temperature Pulse Rate 84 80 78 Respiratory Rate Blood Pressure Pulse Oximetry 92 93 92 10/29/20 17:21 10/29/20 17:31 10/29/20 17:46 Temperature Pulse Rate 80 76 78 Respiratory Rate 21 H 21 H Blood Pressure Pulse Oximetry 95 95 95 10/29/20 17:57 10/29/20 18:13 10/29/20 18:15 Temperature Pulse Rate 77 80 85 Respiratory Rate 18 16 22 H Blood Pressure 139/66 Pulse Oximetry 97 97 99 10/29/20 18:18 10/29/20 18:32 10/29/20 18:48 Temperature Pulse Rate 81 80 76 Respiratory Rate 18 18 18 Blood Pressure 125/77 Pulse Oximetry 96 98 96 10/29/20 19:14 10/29/20 19:15 10/29/20 19:16 Temperature Pulse Rate 71 70 72 Respiratory Rate 21 H 21 H 20 Blood Pressure 123/53 L Pulse Oximetry 98 96 98 10/29/20 19:32 10/29/20 19:34 10/29/20 21:17 Temperature Pulse Rate 74 83 75 Respiratory Rate 20 18 16 Blood Pressure 123/47 L 147/53 H Pulse Oximetry 98 97 97 10/29/20 22:36 10/29/20 23:04 10/30/20 00:00 Temperature 36.0 C L 36.2 C L Pulse Rate 78 71 68 Respiratory Rate 16 20 20 Blood Pressure 141/65 H 166/77 H 153/84 H Pulse Oximetry 98 98 100 10/30/20 04:00 10/30/20 05:21 Temperature 36.1 C L 35.9 C L Pulse Rate 70 90 Respirato
[2020-10-30] MEDS: CHOLECALCIFEROL 1,000 UNITS TABLET 2000 UNITS PO (09:19)
[2020-10-30] MEDS: cilostazoL 100 MG TABLET PO ×2 (09:19→22:23)
[2020-10-30] MEDS: ATORVASTATIN 40 MG TABLET PO (09:19)
[2020-10-30] MEDS: lisinopriL 20 MG TABLET 40 MG PO (09:19)
[2020-10-30] MEDS: HEPARIN SODIUM 5,000 UNITS/ML VIAL 5000 UNITS SUB-Q ×2 (09:20→22:25)
--- NOTE | 2020-10-30 09:31 | PHAR ---
Saydaba FlexTouch Pen 100 units/ml seen in pharmacy and returned to [facility] nursing unit
[2020-10-30 09:33] VITALS: O2SAT 94
[2020-10-30 09:44] LABS: Glucose Point of Care 116 mg/dl (65-105)
[2020-10-30 10:20] VITALS: BMI 26.1
[2020-10-30] MEDS: SODIUM CHLORIDE 0.9% IV 1,000 ML 75 ML IV CONT (11:39)
[2020-10-30 12:17] LABS: Glucose Point of Care 157 mg/dl (65-105)
[2020-10-30 14:00] VITALS: BP 142/57; PULSE 60; RESP 20; TEMP 36.6; O2SAT 98
[2020-10-30 18:32] LABS: Glucose Point of Care 253 mg/dl (65-105)
[2020-10-30] MEDS: INSULIN ASPART (*BKC) 100 UNITS/ML SUB-Q (18:33)
[2020-10-30 22:00] VITALS: BP 162/59; PULSE 72; RESP 16; TEMP 36.1; O2SAT 95
[2020-10-31 03:09] LABS: Glucose Point of Care 233 mg/dl (65-105)
[2020-10-31 05:57] LABS: Hematocrit 36.3 % (42.0-52.0); Hemoglobin 11.5 g/dL (14.0-18.0); Mean Corpuscular HGB Conc 31.7 g/dl (32-36); Mean Corpuscular Hemoglobin 27.7 pg (26-34); Mean Corpuscular Volume 87.5 fl (80-100); Mean Platelet Volume 10.3 fl (7.4-10.4); Platelet Count Result 231 k/mm3 (150-375); Red Blood Count 4.15 M/mm3 (4.6-6.20); White Blood Count 8.2 K/mm3 (4.5-10.0)
[2020-10-31 05:59] VITALS: BP 158/70; PULSE 60; RESP 16; TEMP 36.1; O2SAT 97
[2020-10-31 06:03] LABS: Anion Gap 5 mmol/L (8-16); Blood Urea Nitrogen 13 mg/dL (9-20); Calcium 8.4 mg/dL (8.4-10.2); Carbon Dioxide 25 mmol/L (22-30); Chloride 110 mmol/L (98-107); Estimated CRCL calculation 63 ml/min; Estimated Glomerular Filt Rate > 60; Glucose 136 mg/dL (75-110); Potassium 3.7 mmol/L (3.4-5.0); Sodium 140 mmol/L (137-145)
[2020-10-31] MEDS: glipiZIDE 5 MG TABLET PO (06:45)
[2020-10-31 08:19] LABS: Glucose Point of Care 117 mg/dl (65-105)
[2020-10-31] MEDS: lisinopriL 20 MG TABLET 40 MG PO (09:06)
[2020-10-31] MEDS: CHOLECALCIFEROL 1,000 UNITS TABLET 2000 UNITS PO (09:06)
[2020-10-31] MEDS: ATORVASTATIN 40 MG TABLET PO (09:07)
[2020-10-31] MEDS: HEPARIN SODIUM 5,000 UNITS/ML VIAL 5000 UNITS SUB-Q ×2 (09:07→20:58)
[2020-10-31] MEDS: cilostazoL 100 MG TABLET PO ×2 (09:07→18:15)
[2020-10-31 12:28] LABS: Glucose Point of Care 138 mg/dl (65-105)
[2020-10-31 13:34] LABS: Vancomycin Trough 9.3 ug/mL (10.0-20.0)
[2020-10-31 14:00] VITALS: BP 148/62; PULSE 71; RESP 18; TEMP 36.2; O2SAT 97
[2020-10-31] MEDS: SODIUM CHLORIDE 0.9% IV 1,000 ML 75 ML IV CONT (14:18)
[2020-10-31 16:42] LABS: Glucose Point of Care 135 mg/dl (65-105)
[2020-10-31 20:52] VITALS: BP 155/65; PULSE 69; RESP 18; TEMP 36.1; O2SAT 99
[2020-10-31 21:07] LABS: Glucose Point of Care 115 mg/dl (65-105)
[2020-11-01 05:15] VITALS: BP 185/80; PULSE 69; RESP 22; TEMP 36.1; O2SAT 100
[2020-11-01] MEDS: SODIUM CHLORIDE 0.9% IV 1,000 ML 75 ML IV CONT (06:16)
[2020-11-01] MEDS: glipiZIDE 5 MG TABLET PO (06:45)
[2020-11-01 06:52] LABS: Glucose Point of Care 82 mg/dl (65-105)
[2020-11-01] MEDS: lisinopriL 20 MG TABLET 40 MG PO (07:50)
[2020-11-01] MEDS: ATORVASTATIN 40 MG TABLET PO (07:50)
[2020-11-01] MEDS: CHOLECALCIFEROL 1,000 UNITS TABLET 2000 UNITS PO (07:50)
[2020-11-01] MEDS: HEPARIN SODIUM 5,000 UNITS/ML VIAL 5000 UNITS SUB-Q ×2 (07:51→20:50)
[2020-11-01 08:45] VITALS: BP 140/54; PULSE 46; RESP 18; TEMP 36.8; O2SAT 96
[2020-11-01] MEDS: cilostazoL 100 MG TABLET PO ×2 (10:45→20:50)
[2020-11-01 11:57] VITALS: O2SAT 94
[2020-11-01 12:00] LABS: Glucose Point of Care 100 mg/dl (65-105)
[2020-11-01 14:00] VITALS: BP 140/56; PULSE 55; RESP 18; TEMP 36.8; O2SAT 94
[2020-11-01 16:25] LABS: Glucose Point of Care 114 mg/dl (65-105)
[2020-11-01 20:57] VITALS: BP 148/61; PULSE 62; RESP 18; TEMP 37.1; O2SAT 98
[2020-11-01 21:00] LABS: Glucose Point of Care 132 mg/dl (65-105)
[2020-11-02 05:34] VITALS: BP 149/72; PULSE 61; RESP 18; TEMP 36.1; O2SAT 96
[2020-11-02] MEDS: glipiZIDE 5 MG TABLET PO (06:02)
[2020-11-02 06:06] LABS: Glucose Point of Care 120 mg/dl (65-105)
[2020-11-02] MEDS: CHOLECALCIFEROL 1,000 UNITS TABLET 2000 UNITS PO (09:29)
[2020-11-02] MEDS: ATORVASTATIN 40 MG TABLET PO (09:29)
[2020-11-02] MEDS: lisinopriL 20 MG TABLET 40 MG PO (09:29)
[2020-11-02] MEDS: cilostazoL 100 MG TABLET PO ×2 (09:30→18:25)
[2020-11-02] MEDS: HEPARIN SODIUM 5,000 UNITS/ML VIAL 5000 UNITS SUB-Q ×2 (09:30→20:27)
[2020-11-02 12:06] LABS: Glucose Point of Care 150 mg/dl (65-105)
[2020-11-02 14:00] VITALS: BP 143/53; PULSE 78; RESP 16; TEMP 36.9; O2SAT 98
[2020-11-02 17:29] LABS: Glucose Point of Care 104 mg/dl (65-105)
--- NOTE | 2020-11-02 17:52 | PM.IMPN ---
Progress Note: A&P Assessment and Plan (1) UTI (urinary tract infection): Qualifiers: Hematuria presence: without hematuria Urinary tract infection type: site unspecified Qualified Code(s): N39.0 - Urinary tract infection, site not specified Code(s): N39.0 - Urinary tract infection, site not specified Status: Acute Assessment and Plan: urine culture and IV antibiotics. awaiting urine culture results (2) Hypertension: Code(s): I10 - Essential (primary) hypertension Status: Chronic Assessment and Plan: Stable on current medications continue to monitor (3) Hyperlipidemia: Code(s): E78.5 - Hyperlipidemia, unspecified Status: Chronic Assessment and Plan: Stable on current medication continue to monitor (4) DM2 (diabetes mellitus, type 2): Code(s): E11.9 - Type 2 diabetes mellitus without complications Status: Chronic Assessment and Plan: will monitor glucose with Accu-Cheks and continue home medication. continue to monitor (5) Hydrocephalus: Code(s): G91.9 - Hydrocephalus, unspecified Status: Chronic Assessment and Plan: Stable at present Additional Plan patient is admitted for 23 hour observation. Patient is full code at present time. Will continue with IV antibiotics and monitor culture. plan for custodial Subjective Date/time seen: 11/02/20 17:52 date of service 7 05/22/2020 late entry note I feel well Review of Systems Review of Systems: All systems reviewed & are unremarkable except as noted in HPI and below ( the history and physical examination.) Exam Const: General: cooperative and no acute distress Orientation/consciousness: oriented to person, oriented to place, oriented to time and patient oriented x3 HENMT: Head: normal to inspection Ears: hearing grossly normal bilaterally and external ears normal General nose exam: Normal external nose present Face and sinus: normal facial exam Mouth: Yes Normal oral and palatal mucosa present Eyes: General: appearance normal, both eyes and all related structures Neck: Neck: normal visual inspection and full ROM Chest: Chest palpation & inspection: normal inspection of the chest and normal palpation of entire chest wall Resp: Effort & Inspection: normal respiratory effort Auscultation: clear to auscultation bilaterally Cardio: Jugular venous distension: no JVD Palpation: normal PMI Rate: regular rate Heart sounds: S1 normal heart sound present and S2 normal heart sound present GI: Inspection: normal to inspection Neuro: General: oriented to person, oriented to place, oriented to time and patient oriented x3 Cranial nerves: Yes CN's II-XII intact bilaterally Speech: normal speech Gait exam (Neuro): Normal gait present Motor exam (neuro): 5/5 motor strength present throughout Sensory Exam: normal sensation Psych: Appearance: grossly normal Objective Data Vital Signs Vital Signs: Vital Signs - 24 hr 11/01/20 20:57 11/02/20 05:34 11/02/20 14:00 Temperature 98.7 F 97.0 F L 98.5 F Pulse Rate 62 61 78 Respiratory Rate 18 18 16 Blood Pressure 148/61 H 149/72 H 143/53 H Pulse Oximetry 98 96 98 Intake/Output Intake/Output: Intake & Output 10/30/20 10/31/20 11/01/20 11/02/20 23:59 23:59 23:59 23:59 Intake Total 2760 2770 3010 890 Balance 2760 2770 3010 890 Meds/Results Medications: Active Medications Generic Name Dose Route Start Last Admin Trade Name Freq PRN Reason Stop Dose Admin Atorvastatin Calcium 40 mg 10/30/20 09:00 11/02/20 09:29 Atorvastatin 40 Mg Tablet PO 40 mg DAILY GIUSEPPE Administration Cilostazol 100 mg 10/30/20 09:00 11/02/20 09:30 Cilostazol 100 Mg Tablet PO 100 mg 0900,1900 GIUSEPPE Administration Dextrose 12.5 gm 10/30/20 07:58 Dextrose 50% 25 Gm/50 Ml Syringe IV PUSH PRN PRN Hypoglycemia Protocol Glipizide 5 mg 10/31/20 06:30 11/02/20 06:02
--- NOTE | 2020-11-02 17:56 | PM.IMPN ---
Progress Note: A&P Assessment and Plan (1) UTI (urinary tract infection): Qualifiers: Hematuria presence: without hematuria Urinary tract infection type: site unspecified Qualified Code(s): N39.0 - Urinary tract infection, site not specified Code(s): N39.0 - Urinary tract infection, site not specified Status: Acute Assessment and Plan: urine culture and IV antibiotics. urine culture is growing Valarie will await susceptibility will discontinue current antibiotic (2) Hypertension: Code(s): I10 - Essential (primary) hypertension Status: Chronic Assessment and Plan: Stable on current medications continue to monitor (3) Hyperlipidemia: Code(s): E78.5 - Hyperlipidemia, unspecified Status: Chronic Assessment and Plan: Stable on current medication continue to monitor (4) DM2 (diabetes mellitus, type 2): Code(s): E11.9 - Type 2 diabetes mellitus without complications Status: Chronic Assessment and Plan: will monitor glucose with Accu-Cheks and continue home medication. continue to monitor (5) Hydrocephalus: Code(s): G91.9 - Hydrocephalus, unspecified Status: Chronic Assessment and Plan: Stable at present Additional Plan patient is admitted for 23 hour observation. Patient is full code at present time. Will continue with IV antibiotics and monitor culture. plan for intermediate Subjective Date/time seen: 11/02/20 17:56 I feel well Review of Systems Review of Systems: All systems reviewed & are unremarkable except as noted in HPI and below ( the history and physical examination.) Exam Const: General: cooperative and no acute distress Orientation/consciousness: oriented to person, oriented to place, oriented to time and patient oriented x3 HENMT: Head: normal to inspection Ears: hearing grossly normal bilaterally and external ears normal General nose exam: Normal external nose present Face and sinus: normal facial exam Mouth: Yes Normal oral and palatal mucosa present Eyes: General: appearance normal, both eyes and all related structures Neck: Neck: normal visual inspection and full ROM Chest: Chest palpation & inspection: normal inspection of the chest and normal palpation of entire chest wall Resp: Effort & Inspection: normal respiratory effort Auscultation: clear to auscultation bilaterally Cardio: Jugular venous distension: no JVD Palpation: normal PMI Rate: regular rate Heart sounds: S1 normal heart sound present and S2 normal heart sound present GI: Inspection: normal to inspection Neuro: General: oriented to person, oriented to place, oriented to time and patient oriented x3 Cranial nerves: Yes CN's II-XII intact bilaterally Speech: normal speech Gait exam (Neuro): Normal gait present Motor exam (neuro): 5/5 motor strength present throughout Sensory Exam: normal sensation Psych: Appearance: grossly normal Objective Data Vital Signs Vital Signs: Vital Signs - 24 hr 11/01/20 20:57 11/02/20 05:34 11/02/20 14:00 Temperature 98.7 F 97.0 F L 98.5 F Pulse Rate 62 61 78 Respiratory Rate 18 18 16 Blood Pressure 148/61 H 149/72 H 143/53 H Pulse Oximetry 98 96 98 Intake/Output Intake/Output: Intake & Output 10/30/20 10/31/20 11/01/20 11/02/20 23:59 23:59 23:59 23:59 Intake Total 2760 2770 3010 890 Balance 2760 2770 3010 890 Meds/Results Medications: Active Medications Generic Name Dose Route Start Last Admin Trade Name Freq PRN Reason Stop Dose Admin Atorvastatin Calcium 40 mg 10/30/20 09:00 11/02/20 09:29 Atorvastatin 40 Mg Tablet PO 40 mg DAILY GIUSEPPE Administration Cilostazol 100 mg 10/30/20 09:00 11/02/20 09:30 Cilostazol 100 Mg Tablet PO 100 mg 0900,1900 GIUSEPPE Administration Dextrose 12.5 gm 10/30/20 07:58 Dextrose 50% 25 Gm/50 Ml Syringe IV PUSH PRN PRN Hypoglycemia Protocol Glipizide 5 mg 10/31/20 06:
--- NOTE | 2020-11-02 17:58 | PM.IMPN ---
Progress Note: A&P Assessment and Plan (1) UTI (urinary tract infection): Qualifiers: Hematuria presence: without hematuria Urinary tract infection type: site unspecified Qualified Code(s): N39.0 - Urinary tract infection, site not specified Code(s): N39.0 - Urinary tract infection, site not specified Status: Acute Assessment and Plan: urine culture and IV antibiotics. await cultures (2) Hypertension: Code(s): I10 - Essential (primary) hypertension Status: Chronic Assessment and Plan: Stable on current medications continue to monitor (3) Hyperlipidemia: Code(s): E78.5 - Hyperlipidemia, unspecified Status: Chronic Assessment and Plan: Stable on current medication continue to monitor (4) DM2 (diabetes mellitus, type 2): Code(s): E11.9 - Type 2 diabetes mellitus without complications Status: Chronic Assessment and Plan: will monitor glucose with Accu-Cheks and continue home medication. continue to monitor (5) Hydrocephalus: Code(s): G91.9 - Hydrocephalus, unspecified Status: Chronic Assessment and Plan: Stable at present Additional Plan patient is admitted for 23 hour observation. Patient is full code at present time. Will continue with IV antibiotics and monitor culture. plan for longterm Subjective Date/time seen: 11/02/20 17:58 date of service is 11/01/2020 late entry note Review of Systems Review of Systems: All systems reviewed & are unremarkable except as noted in HPI and below ( the history and physical examination.) Exam Const: General: cooperative and no acute distress Orientation/consciousness: oriented to person, oriented to place, oriented to time and patient oriented x3 HENMT: Head: normal to inspection Ears: hearing grossly normal bilaterally and external ears normal General nose exam: Normal external nose present Face and sinus: normal facial exam Mouth: Yes Normal oral and palatal mucosa present Eyes: General: appearance normal, both eyes and all related structures Neck: Neck: normal visual inspection and full ROM Chest: Chest palpation & inspection: normal inspection of the chest and normal palpation of entire chest wall Resp: Effort & Inspection: normal respiratory effort Auscultation: clear to auscultation bilaterally Cardio: Jugular venous distension: no JVD Palpation: normal PMI Rate: regular rate Heart sounds: S1 normal heart sound present and S2 normal heart sound present GI: Inspection: normal to inspection Neuro: General: oriented to person, oriented to place, oriented to time and patient oriented x3 Cranial nerves: Yes CN's II-XII intact bilaterally Speech: normal speech Gait exam (Neuro): Normal gait present Motor exam (neuro): 5/5 motor strength present throughout Sensory Exam: normal sensation Psych: Appearance: grossly normal Objective Data Vital Signs Vital Signs: Vital Signs - 24 hr 11/01/20 20:57 11/02/20 05:34 11/02/20 14:00 Temperature 98.7 F 97.0 F L 98.5 F Pulse Rate 62 61 78 Respiratory Rate 18 18 16 Blood Pressure 148/61 H 149/72 H 143/53 H Pulse Oximetry 98 96 98 Intake/Output Intake/Output: Intake & Output 10/30/20 10/31/20 11/01/20 11/02/20 23:59 23:59 23:59 23:59 Intake Total 2760 2770 3010 890 Balance 2760 2770 3010 890 Meds/Results Medications: Active Medications Generic Name Dose Route Start Last Admin Trade Name Freq PRN Reason Stop Dose Admin Atorvastatin Calcium 40 mg 10/30/20 09:00 11/02/20 09:29 Atorvastatin 40 Mg Tablet PO 40 mg DAILY GIUSEPPE Administration Cilostazol 100 mg 10/30/20 09:00 11/02/20 09:30 Cilostazol 100 Mg Tablet PO 100 mg 0900,1900 GIUSEPPE Administration Dextrose 12.5 gm 10/30/20 07:58 Dextrose 50% 25 Gm/50 Ml Syringe IV PUSH PRN PRN Hypoglycemia Protocol Glipizide 5 mg 10/31/20 06:30 11/02/20 06:02 Glipizide 5 Mg Tablet P
[2020-11-02 20:20] LABS: Vancomycin Trough 15.7 ug/mL (10.0-20.0)
[2020-11-02 20:42] VITALS: BP 149/68; PULSE 71; RESP 18; TEMP 36; O2SAT 100
[2020-11-02 21:15] LABS: Glucose Point of Care 150 mg/dl (65-105)
[2020-11-03 05:23] VITALS: BP 147/62; PULSE 69; RESP 18; TEMP 36.4; O2SAT 98
[2020-11-03] MEDS: glipiZIDE 5 MG TABLET PO (06:31)
[2020-11-03] MEDS: lisinopriL 20 MG TABLET 40 MG PO (08:13)
[2020-11-03] MEDS: CHOLECALCIFEROL 1,000 UNITS TABLET 2000 UNITS PO (08:13)
[2020-11-03] MEDS: ATORVASTATIN 40 MG TABLET PO (08:13)
[2020-11-03] MEDS: HEPARIN SODIUM 5,000 UNITS/ML VIAL 5000 UNITS SUB-Q (08:14)
--- NOTE | 2020-11-03 10:42 | PM.DS ---
DS: Admitting Diagnosis Admitting Diagnosis Admitting Diagnosis: (1) UTI (urinary tract infection): Qualifiers: Hematuria presence: without hematuria Urinary tract infection type: site unspecified Qualified Code(s): N39.0 - Urinary tract infection, site not specified Code(s): N39.0 - Urinary tract infection, site not specified Status: Acute Assessment and Plan: urine culture and IV antibiotics. (2) Hypertension: Code(s): I10 - Essential (primary) hypertension Status: Chronic Assessment and Plan: Stable on current medicati (3) Hyperlipidemia: Code(s): E78.5 - Hyperlipidemia, unspecified Status: Chronic Assessment and Plan: Stable on current medication (4) DM2 (diabetes mellitus, type 2): Code(s): E11.9 - Type 2 diabetes mellitus without complications Status: Chronic Assessment and Plan: will monitor glucose with Accu-Cheks and continue home medication. (5) Hydrocephalus: Code(s): G91.9 - Hydrocephalus, unspecified Status: Chronic Assessment and Plan: Stable at present DS: Discharge Diagnosis Discharge Diagnosis (1) UTI (urinary tract infection): Qualifiers: Hematuria presence: without hematuria Urinary tract infection type: site unspecified Qualified Code(s): N39.0 - Urinary tract infection, site not specified Code(s): N39.0 - Urinary tract infection, site not specified Status: Acute Assessment and Plan: Discontinue antibiotics UA cx significant for Valarie Albicans (2) Hypertension: Code(s): I10 - Essential (primary) hypertension Status: Chronic Assessment and Plan: Stable on current medications continue to monitor (3) Hyperlipidemia: Code(s): E78.5 - Hyperlipidemia, unspecified Status: Chronic Assessment and Plan: Stable on current medication continue to monitor (4) DM2 (diabetes mellitus, type 2): Code(s): E11.9 - Type 2 diabetes mellitus without complications Status: Chronic Assessment and Plan: will monitor glucose with Accu-Cheks and continue home medication. continue to monitor (5) Hydrocephalus: Code(s): G91.9 - Hydrocephalus, unspecified Status: Chronic Assessment and Plan: Stable at present DS: Summary Hospital Course Reason for hospitalization: generalized weakness Hospital Course: 70 years old male was admitted through the emergency room with complaints of having generalized weakness going on for the last 2 days. According to the patient since he was discharged from the hospital few weeks ago he never completely recovered. For the last few days he was having increase frequency of urination and burning urination. No shortness of breath or chest pain. No fever. No abdominal pain, no nausea, no vomiting. Mood stable. patient was admitted to regular medical floor and he was placed on antibiotics UA returned Valarie albicans. antibiotics were discontinued consults obtained: No consult procedures performed: No procedures Status at Discharge Cognitive/behavioral status at discharge: AAOX2 Functional status at discharge: independent ambulation Overall status at discharge: patient is back to baseline Time Spent with Patient Time attestation: Total time spent providing and/or coordinating discharge services: Time spent: Greater than 30 minutes Exam Const: General: cooperative and no acute distress Orientation/consciousness: oriented to person, oriented to place, oriented to time and patient oriented x3 HENMT: Head: normal to inspection Ears: hearing grossly normal bilaterally and external ears normal General nose exam: Normal external nose present Face and sinus: normal facial exam Mouth: Yes Normal oral and palatal mucosa present Eyes: General: appearance normal, both eyes and all related structures Neck: Neck: normal visual inspection and full ROM
[2020-11-03] MEDS: cilostazoL 100 MG TABLET PO (11:27)
[2020-11-03 12:21] LABS: Glucose Point of Care 114 mg/dl (65-105)
[2020-11-03 12:22] LABS: Glucose Point of Care 74 mg/dl (65-105)
== END 2020-11-03 13:25 ==
LOC: ANHED 17:04 → ANH2MED 23:18
PROVIDERS: Internal Medicine; Admitting Provider Internal Medicine; Emergency Provider Emergency Medicine; PCP Internal Medicine; Visit Provider Internal Medicine
DX: N39.0 Urinary tract infection, site not specified (principal); I10 Essential (primary) hypertension; E11.9 Type 2 diabetes mellitus without complications; E78.5 Hyperlipidemia, unspecified; G91.2 (Idiopathic) normal pressure hydrocephalus; Z98.2 Presence of cerebrospinal fluid drainage device
CPT/HCPCS: 36415; 70450; 80048; 80053; 80202; 81001; 82948; 85025; 85027; 87086; 93005; 96361; 96365; 96366; 96367; 96372; 97110; 97116; 97161; 97165; 97530; 97535; 99285; A9270; G0378; J0696; J1644; J1815; J3370; J7030

== ENCOUNTER 2021-02-03 23:42 | Observation (INO) | payer OTHER, SELFPAY ==
--- NOTE | ~2021-02-03 | XR_ITS ---
EXAMINATION: XR shunt series DATE: 02/04/2021 00:50 INDICATION: Fever. TECHNIQUE: 4 views of a ventriculoperitoneal shunt series on 5 radiographs were obtained. COMPARISON: None. FINDINGS: There is a right-sided ventriculoperitoneal shunt with proximal tip in the area of the sept um pellucidum. There is no kink or discontinuity of the tube. The distal tip is in the left abdomen. There are surgical clips in left pelvis. IMPRESSION: 1. Intact ventriculoperitoneal shunt. Reviewed, dictated and finalized at location A.
--- NOTE | ~2021-02-03 | XR_ITS ---
EXAMINATION: XR chest 1V portable DATE: 02/04/2021 00:23 INDICATION: Fever. TECHNIQUE: A single frontal view of the chest was obtained. COMPARISON: Chest single view 10/17/2020 FINDINGS: Lung volumes are small. There is mild atelectasis in left lower lung zone. A calcified left lung nodule is consistent with old granulomatous disease. No pleural effusion or pneumothorax. The h eart size is normal. A right-sided ventriculoperitoneal shunt is noted. IMPRESSION: 1. Small lung volumes with mild atelectasis in left lower lung zone. Reviewed, dictated and finalized at location A.
--- NOTE | ~2021-02-03 | CT_ITS ---
EXAMINATION: CT brain wo con DATE: 02/04/2021 00:37 INDICATION: Ventriculoperitoneal shunt TECHNIQUE: Computed tomography (CT) of the head was performed without intravenous contrast. The mA wa s adjusted according to patient size. Iterative reconstruction technique was employed. Exam dose: 68 1.00 mGy-cm total exam DLP. COMPARISON: 10/29/2020 CT brain FINDINGS: A right frontal ventricular shunt is again noted, the shunt catheter terminating at the mid line at the left frontal horn. There is chronic dilatation of the fourth, third and lateral ventricle s, not significantly changed since 10/29/2020. No intracranial mass lesion or hemorrhage, midline shift or mass effect effect. No subdural or epidural hematoma. There is a band of high density around the right ocular globe, unchanged since 10/29/2020. The mastoid air cells and included paranasal sinuses are normally developed and aerated. No fracture or bone destruction of the cranial vault. IMPRESSION: Right ventricular peritoneal shunt; chronic dilatation of the ventricles No acute intracranial finding or significant change since 10/29/2020 Reviewed, dictated and finalized at Location [facility]. Reviewed, dictated and finalized at location A. IMPRESSION: Right ventricular peritoneal shunt; chronic dilatation of the vent ricles No acute intracranial finding or significant change since 10/29/2020
[2021-02-03 23:45] VITALS: BP 170/90; PULSE 88; RESP 16; O2SAT 99
--- NOTE | 2021-02-03 23:46 | ED.FEVER ---
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 Patient reports he has had fever over the course of the afternoon as well as generalized weakness and malaise. He reports rhinorrhea without sore throat, no loss of sense of taste or smell. He reports mild diarrhea. He denies chest pain or abdominal pain. No cough or shortness of. No significant headache. No focal numbness or weakness. Patient states ambulation has been difficult secondary to his weakness. Patient is vaccinated for Covid without history of Covid infection in the past. No recent sick contacts. Patient does deny any dysuria, hematuria, frequency. Per chart review, patient mated to this facility in October for urinary tract infection. The patient was placed in July of [facility]. Patient took Tylenol at home just prior to arrival. Related Data Home Medications Medication Instructions Recorded Confirmed Jardiance 25 mg PO DAILY 06/30/20 10/29/20 Tresiba FlexTouch U-100 20 unit SUBCUT HS 06/30/20 10/29/20 atorvastatin 40 mg PO DAILY 06/30/20 10/29/20 cilostazol 100 mg PO BID 06/30/20 10/29/20 lisinopril 40 mg PO DAILY 06/30/20 10/29/20 cholecalciferol (vitamin D3) 50 mcg PO DAILY 10/17/20 10/29/20 Allergies Allergy/AdvReac Type Severity Reaction Status Date / Time No Known Allergies Verified 02/04/21 00:32 Review of Systems Review of Systems: CONSTITUTIONAL: Reports fever and chills EYES: Denies visual changes, redness, or discharge. ENT: Reports congestion, rhinorrhea CARDIOVASCULAR: Denies chest pain, palpitations, or edema. RESPIRATORY: Denies cough or dyspnea. GASTROINTESTINAL: Denies abdominal pain, nausea, vomiting, reports diarrhea GENITOURINARY: Denies dysuria or hematuria. SKIN: Denies rash or itching. 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 He desires to be a full code. Lifelong nonsmoker. The patient denies any alcohol intake. He denies any marijuana use or illicit drugs. Smoking status: Never smoker Alcohol intake: never Substance use: never Gender identity (if verbalized by the patient): Male Spiritual care concerns: No Exam Narrative: GENERAL: Awake, alert, conversant HEAD: Normocephalic, atraumatic. EYES: 2+ PERRLA and EOMI. ENT: Nares clear, no rhinorrhea or epistaxis. Mucous membranes moist. NECK: Supple. CHEST: No respiratory distress, breathing even and non labored HEART: Regular rate, sinus rhythm ABDOMEN:Non distended, non tender EXTREMITIES: Normal range of motion. No edema. SKIN: Pale, warm, dry, no rash. NEURO:No focal deficits. Alert and oriente
[2021-02-03 23:51] VITALS: BP 168/86; O2SAT 98
[2021-02-03 23:52] VITALS: O2SAT 98
[2021-02-04] VITALS (31 sets, daily range): BP systolic 115–183; BP diastolic 58–90; PULSE 68–88; RESP 14–18; TEMP 36.6–37.6; O2SAT 94–100; BMI 24.9
--- NOTE | 2021-02-04 00:10 | ECG_ITS ---
Measurements Intervals Irma Rate: 102 P: NC: 0 QRS: 6 QRSD: 146 T: 38 QT: 356 QTc: 465 Interpretive Statements SINUS OR ECTOPIC ATRIAL TACHYCARDIA RIGHT BUNDLE BRANCH BLOCK BASELINE ARTIFACT- I, II, AVR, AVL, AVF, V1-V2 ABNORMAL ECG Electronically Signed On 02-04-2021 12:34:27 CDT by Tushar Lacey D.O.
[2021-02-04 01:18] LABS: Basophils Percent Auto 0.3 % (0.2-1.2); Eosinophils Percent Auto 0.1 % (0-4.4); Hematocrit 40.8 % (42.0-52.0); Hemoglobin 13.1 g/dL (14.0-18.0); Immature Granulocyte Absolute 0.06 K/mm3 (0.00-0.031); Immature Granulocyte Percent A 0.5 % (0-0.5); Lymphocytes Absolute Auto 0.39 K/mm3 (0.9-3.2); Mean Corpuscular HGB Conc 32.1 g/dl (32-36); Mean Corpuscular Volume 90.3 fl (80-100); Mean Platelet Volume 10.5 fl (7.4-10.4); Monocytes Absolute Auto 0.5 K/mm3 (0.1-0.6); Neutrophils Absolute Auto 12.1 K/mm3 (1.3-6.7); Neutrophils Percent Auto 92.1 % (45.5-73.1); Platelet Count Result 165 k/mm3 (150-375); Red Blood Count 4.52 M/mm3 (4.6-6.20); Red Cell Distribution Width 15.1 % (11.5-14.5); White Blood Count 13.2 K/mm3 (4.5-10.0)
[2021-02-04 01:34] LABS: INR 1.1
[2021-02-04 01:35] LABS: Partial Thromboplastin Time 27.4 SECONDS (22.3-36.8)
[2021-02-04 01:36] LABS: Lactic Acid Reflex 1.6 mmol/L (0.7-2.1)
[2021-02-04 01:47] LABS: Troponin I 0.018 ng/mL (0.000-0.034)
[2021-02-04 02:02] LABS: Alanine Aminotransferase 16 U/L (4-50); Albumin Level 4.2 g/dL (3.5-5.1); Alkaline Phosphatase 106 U/L (38-126); Anion Gap 9 mmol/L (8-16); Aspartate Amino Transferase 23 U/L (17-59); Bilirubin,Total 1.1 mg/dL (0.2-1.3); Blood Urea Nitrogen 14 mg/dL (9-20); CRP 2.4 mg/dL (<1.0); Calcium 9.1 mg/dL (8.4-10.2); Carbon Dioxide 25 mmol/L (22-30); Chloride 105 mmol/L (98-107); Estimated CRCL calculation 58 ml/min; Estimated Glomerular Filt Rate 60; Glucose 255 mg/dL (65-110); Lipase 46 U/L (23-300); Potassium 3.8 mmol/L (3.4-5.0); Sodium 139 mmol/L (137-145)
[2021-02-04 02:25] LABS: Add Urine Microscopic? YES; Appearance Urine Cloudy (Clear); Bilirubin Urine Negative (Negative); Blood Urine 3+ (Negative); Color Urine Yellow (Yellow); Glucose Urine UA 3+ mg/dL (Negative); Ketones Urine Negative (Negative); Leukocyte Esterase Ur 3+ LEU/UL (Negative); Mucus Urine Rare /lpf; Nitrate Urine Negative (Negative); Protein Urine 1+ mg/dL (Negative); RBC Urine 51-75 /hpf (0-2); Specific Grav Ur 1.012 (1.001-1.035); Squamous Epithelial Cell Urine Few /hpf (Few); Urobilinogen Urine Negative mg/dL (<2.0); WBC Clumps Urine Present /HPF; WBC Urine >75 /hpf
--- NOTE | 2021-02-04 07:25 | ADMGEN ---
This patient, Kirit Tay, was admitted to [facility] Surg Room 310-01. Patient/family oriented to hospital policies and general routines including ID bracelet, bed and alarms, visiting hours, pain management, procedures, bathroom and other care routines, personal items, smoking policy, room service/diet, and visiting hours. Information on how to activate the Rapid Response Team has been discussed. Patient/Family are encouraged to report perceived risks to care and to ask questions if they do not understand what they are told or what they should do.
[2021-02-04] MEDS: SODIUM CHLORIDE 0.9% IV 1,000 ML 125 ML IV CONT (07:32)
[2021-02-04 08:40] LABS: Glucose Point of Care 170 mg/dl (65-105)
--- NOTE | 2021-02-04 09:39 | PM.IMHP ---
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 Mother Brain bleed Patient's mother is Family history of type 2 diabetes mellitus Social History Social History Social History: The patient lives with his who is a durable power senior trial attorney for healthcare. 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 He desires to be a full code. Lifelong nonsmoker. The patient denies any alcohol intake. He denies any marijuana use or illicit drugs. Smoking status: Never smoker Alcohol intake: never Substance use: never Gender identity (if verbalized by the patient): Male Spiritual care concerns: No Meds Home Medications and Allergies Home Medications Medication Instructions Recorded Confirmed Type Tresiba FlexTouch U-100 9 unit SUBCUT HS 06/30/20 02/04/21 History atorvastatin 40 mg PO DAILY 06/30/20 02/04/21 History cilostazol 100 mg PO BID 06/30/20 02/04/21 History lisinopril 40 mg PO DAILY 06/30/20 02/04/21 History cholecalciferol (vitamin D3) 50 mcg PO DAILY 10/17/20 02/04/21 History miconazole nitrate [Aloe [place] 1 applic TOPICAL Q12HR #1 g 11/03/20 02/04/21 Rx Antifungal (micon)] sitagliptin [Januvia] 100 mg PO DAILY 02/04/21 02/04/21 History Allergies Allergy/AdvReac Type Severity Reaction Status Date / Time No Known Allergies Verified 02/04/21 08:01 Vital Signs Vital Signs - 24 hr 02/03/21 23:45 02/03/21 23:51 02/03/21 23:52 Temperature Pulse Rate 88 Respiratory Rate 16 Blood Pressure 170/90 H 168/86 H Pulse Oximetry 99 98 98 02/04/21 00:02 02/04/21 00:03 02/04/21 00:15 Temperature Pulse Rate Respiratory Rate Blood Pressure 181/87 H Pulse Oximetry 98 99 94 02/04/21 00:17 02/04/21 00:18 02/04/21 00:46 Temperature Pulse Rate 77 Respiratory Rate 18 Blood Pressure 183/82 H Pulse Oximetry 98 97 97 02/04/21 01:00 02/04/21 01:15 02/04/21 01:30 Temperature Pulse Rate Respiratory Rate Blood Pressure Pulse Oximetry 99 97 96 02/04/21 01:45 02/04/21 02:00 02/04/21 02:15 Temperature Pulse Rate Respiratory Rate Blood Pressure Pulse Oximetry 97 97 98 02/04/21 02:30 02/04/21 02:45 02/04/21 03:00 Temperature Pulse Rate 68 Respiratory Rate 16 Blood Pressure 166/78 H Pulse Oximetry 96 96 98 02/04/21 03:15 02/04/21 03:30 02/04/21 03:45 Temperature Pulse Rate Respiratory Rate Blood Pressure Pulse Oximetry 96 100 99 02/04/21 04:00 02/04/21 04:15 02/04/21 04:30 Temperature Pulse Rate 82 Respiratory Rate 16 Blood Pressure 170/80 H Pulse Oximetry 98 99 98 02/04/21 04:45 02/04/21 05:00 02/04/21 05:15 Temperature Pulse Rate Respiratory Rate Blood Pressure Pulse Oximetry 98 97 98 02/04/21 06:37 02/04/21 07:58 Temperature 98.5 F 97.9 F Pulse Rate 81 Respiratory Rate 14 Blood Pressure 177/90 H Pulse Oximetry 97 H&P: Results Labs Labs: Short CBC 02/04/21 Range/Units 01:05 WBC 13.2 H (4.5-10.0) K/mm3 Hgb 13.1 L (14.0-18.0) g/dL Hct 40.8 L (42.0-52.0) % Plt Count 165 (150-375) k/mm3 BMP 02/04/21 01:05 Sodium 139 Potassium 3.8 Chloride 105 Carbon Dioxide 25 BUN 14 Creatinine 1.20 Glucose 255 H Calcium 9.1 Cardiac Enzymes 10
[2021-02-04] MEDS: lisinopriL 20 MG TABLET 40 MG PO (10:29)
[2021-02-04] MEDS: cilostazoL 100 MG TABLET PO ×2 (10:29→19:05)
[2021-02-04] MEDS: ENOXAPARIN 40 MG/0.4 ML SYRINGE SUB-Q (10:29)
[2021-02-04] MEDS: hydrALAZINE HCL 50 MG TABLET PO ×3 (10:30→20:29)
[2021-02-04 12:29] LABS: Glucose Point of Care 219 mg/dl (65-105)
[2021-02-04] MEDS: INSULIN ASPART (*BKC) 100 UNITS/ML SUB-Q (12:47)
[2021-02-04 17:13] LABS: Glucose Point of Care 179 mg/dl (65-105)
[2021-02-04] MEDS: ATORVASTATIN 40 MG TABLET PO (17:59)
[2021-02-04 19:14] LABS: SARS-CoV-2 RNA PCR Positive
[2021-02-04 19:36] LABS: Iron 18 ug/dL (49-181)
[2021-02-04 19:48] LABS: Percent Iron Saturation 9 % (20-50)
[2021-02-04] MEDS: SODIUM CHLORIDE 0.9% IV 1,000 ML 75 ML IV CONT (20:29)
[2021-02-05 00:36] LABS: Glucose Point of Care 187 mg/dl (65-105)
[2021-02-05 06:00] VITALS: BP 168/81; PULSE 85; RESP 18; TEMP 36.9; O2SAT 98
[2021-02-05 06:52] LABS: Basophils Percent Auto 0.4 % (0.2-1.2); Eosinophils Absolute Auto 0.2 K/mm3 (0-0.3); Eosinophils Percent Auto 1.8 % (0-4.4); Hematocrit 36.4 % (42.0-52.0); Hemoglobin 11.9 g/dL (14.0-18.0); Immature Granulocyte Absolute 0.05 K/mm3 (0.00-0.031); Immature Granulocyte Percent A 0.5 % (0-0.5); Lymphocytes Absolute Auto 1.09 K/mm3 (0.9-3.2); Lymphocytes Percent Auto 11.8 % (18.3-44.2); Mean Corpuscular HGB Conc 32.7 g/dl (32-36); Mean Corpuscular Hemoglobin 28.5 pg (26-34); Mean Corpuscular Volume 87.1 fl (80-100); Mean Platelet Volume 10.6 fl (7.4-10.4); Monocytes Absolute Auto 0.7 K/mm3 (0.1-0.6); Neutrophils Absolute Auto 7.2 K/mm3 (1.3-6.7); Neutrophils Percent Auto 77.5 % (45.5-73.1); Platelet Count Result 153 k/mm3 (150-375); Red Blood Count 4.18 M/mm3 (4.6-6.20); Red Cell Distribution Width 15.5 % (11.5-14.5); White Blood Count 9.3 K/mm3 (4.5-10.0)
--- NOTE | 2021-02-05 07:20 | PM.DS ---
DS: Admitting Diagnosis Discharge Date 7:21 a.m. on February 05, 2021 Admitting Diagnosis Urinary tract infection DS: Summary Hospital Course Hospital Course: See discharge summary below Time Spent with Patient Time attestation: Total time spent providing and/or coordinating discharge services: START OF DOCTOR IVANNA?S DISCHARGE SUMMARY Date of Admission: February 04, 2021 Date of Discharge: 7:20 a.m. on February 05, 2021 Primary Diagnosis: Urinary tract infection Secondary Diagnosis: COVID-19 positive, asymptomatic NPH, status post J2EE APPLICATION DEVELOPER shunt placement Osteoarthritis Peripheral vascular disease Iron deficiency anemia Diabetes Hyperlipidemia Hypertension Consultations: None Disposition: The patient will be advised follow-up with his primary care physician 7-10 days post discharge for post hospitalization evaluation Discharge Medications: Ferrous sulfate 325 mg p.o. b.i.d. Vitamin-C 500 mg p.o. daily Bactrim ds: 1 tab p.o. b.i.d.. Quantity 8. 0 refills Vitamin-D 50 mg p.o. daily Tripp on 2% ointment apply to affected area b.i.d. Lipitor 40 mg p.o. q.h.s. Pletal 100 mg p.o. b.i.d. Tresiba 90 units subcutaneously q.h.s. Lisinopril 40 mg p.o. daily Januvia 100 mg p.o. daily Hydralazine 50 mg p.o. t.i.d. END OF DOCTOR IVANNA?S DISCHARGE SUMMARY DS: Data Data Completed and Pending Labs on day of discharge: Labs from last 24 hours 02/05/21 02/05/21 02/04/21 06:01 00:33 17:09 WBC 9.3 RBC 4.18 L Hgb 11.9 L Hct 36.4 L MCV 87.1 MCH 28.5 MCHC 32.7 RDW 15.5 H Plt Count 153 MPV 10.6 H Immature Gran % (Auto) 0.5 Neut % (Auto) 77.5 H Lymph % (Auto) 11.8 L [place] % (Auto) 8.0 Eos % (Auto) 1.8 Baso % (Auto) 0.4 Lymph # (Auto) 1.09 [place] # (Auto) 0.7 H Eos # (Auto) 0.2 Baso # (Auto) 0.0 Abs Immat Gran (auto) 0.05 H Absolute Neuts (auto) 7.2 H Absolute Nucleated RBC 0.0 Nucleated RBC % 0.0 POC Capillary Glucose 187 H 179 H Iron TIBC % Saturation Ferritin Free PSA % Free PSA Total PSA SARS-CoV-2 RNA (RT-PCR) 02/04/21 02/04/21 02/04/21 12:01 10:02 10:02 WBC RBC Hgb Hct MCV MCH MCHC RDW Plt Count MPV Immature Gran % (Auto) Neut % (Auto) Lymph % (Auto) [place] % (Auto) Eos % (Auto) Baso % (Auto) Lymph # (Auto) [place] # (Auto) Eos # (Auto) Baso # (Auto) Abs Immat Gran (auto) Absolute Neuts (auto) Absolute Nucleated RBC Nucleated RBC % POC Capillary Glucose 219 H Iron 18 L TIBC 205 L % Saturation 9 L Ferritin 172.00 Free PSA Pending % Free PSA Pending Total PSA Pending SARS-CoV-2 RNA (RT-PCR) 02/04/21 02/04/21 08:35 01:57 WBC RBC Hgb Hct MCV MCH MCHC RDW Plt Count MPV Immature Gran % (Auto) Neut % (Auto) Lymph % (Auto) [place] % (Auto) Eos % (Auto) Baso % (Auto) Lymph # (Auto) [place] # (Auto) Eos # (Auto) Baso # (Auto) Abs Immat Gran (auto) Absolute Neuts (auto) Absolute Nucleated RBC Nucleated RBC % POC Capillary Glucose 170 H Iron TIBC % Saturation Ferritin Free PSA % Free PSA Total PSA SARS-CoV-2 RNA (RT-PCR) Positive A Preliminary micro results at discharge 02/04/21 01:05 Blood Culture - Preliminary Blood 02/04/21 01:05 Blood Culture - Preliminary Blood Discharge Plan Discharge Discharging Clinician: Dr. Juarez Patient Disposition: Home, Self-Care Activity: as tolerated Diet: diabetic, low sodium, low cholesterol and low fat Discharge Instructions: The patient is advised follow-up with his primary care physician 7-10 days post discharge for post hospitalization evaluation Patient Instructions: Antibiotic Form, Heart Failure (DC) Stand Alone Forms: General Discharge Information Follow-up/R
[2021-02-05 08:00] VITALS: BP 158/84; PULSE 81; RESP 16; TEMP 37.6; O2SAT 97
[2021-02-05 08:10] LABS: Glucose Point of Care 158 mg/dl (65-105)
[2021-02-05] MEDS: ENOXAPARIN 40 MG/0.4 ML SYRINGE SUB-Q (11:11)
[2021-02-05] MEDS: cilostazoL 100 MG TABLET PO (11:12)
[2021-02-05] MEDS: hydrALAZINE HCL 50 MG TABLET PO ×2 (11:12→13:28)
[2021-02-05] MEDS: lisinopriL 20 MG TABLET 40 MG PO (11:12)
[2021-02-05 12:00] VITALS: BP 104/51; PULSE 90; RESP 16; O2SAT 97
[2021-02-05 12:18] LABS: Glucose Point of Care 235 mg/dl (65-105)
[2021-02-05 13:01] VITALS: TEMP 36.9
[2021-02-05] MEDS: INSULIN ASPART (*BKC) 100 UNITS/ML SUB-Q (13:27)
[2021-02-07 22:26] LABS: PSA, Free 0.11 ng/mL; PSA, Total 0.5 ng/mL (<=4.0)
== END 2021-02-05 16:32 | disposition home health service (06) ==
LOC: ANHED 02-04 03:57 → ANH3MEDSUR 02-04 13:08
PROVIDERS: Admitting Provider Internal Medicine; Emergency Provider Emergency Medicine; PCP Internal Medicine; Visit Provider Internal Medicine
DX: U07.1 COVID-19 (principal); N39.0 Urinary tract infection, site not specified; R53.1 Weakness; G91.2 (Idiopathic) normal pressure hydrocephalus; D50.9 Iron deficiency anemia, unspecified; E78.5 Hyperlipidemia, unspecified; E11.51 Type 2 diabetes mellitus with diabetic peripheral angiopathy without gangrene; I10 Essential (primary) hypertension; Z79.84 Long term (current) use of oral hypoglycemic drugs; Z79.4 Long term (current) use of insulin; Z98.2 Presence of cerebrospinal fluid drainage device; Z79.899 Other long term (current) drug therapy
CPT/HCPCS: 36415; 70250; 70450; 71045; 74018; 80053; 81001; 82728; 82948; 83540; 83550; 83605; 83690; 84153; 84154; 84484; 85025; 85610; 85730; 86140; 87040; 87086; 93005; 96361; 96365; 96366; 96372; 96375; 97162; 97165; 99285; A9270; C9803; G0378; J0131; J0696; J1650; J1815; J7030; U0003; U0005

== ENCOUNTER → 2021-12-30 16:05 | Outpatient (CLI) | payer OTHER, SELFPAY ==
--- NOTE | ~2021-12-30 | XR_ITS ---
EXAMINATION: XR chest 2V Exam Date/Time: 12/30/2021 16:15 CDT HISTORY: Chronic cough Comparison: 02/04/2021. RESULT: Lines, tubes, and devices: Shunt tubing traverses the left chest, visualized portions intact. Lungs and pleura: Elevation of left hemidiaphragm. Lungs are clear. Cardiomediastinal silhouette: Stable. Other: No acute osseous or upper abdominal finding. Osseous findings as can be seen with ankylosing spondylitis. IMPRESSION: No acute cardiopulmonary process detected. Reviewed, dictated and finalized at location K.
== END ==
PROVIDERS: PCP Internal Medicine; Visit Provider Internal Medicine
DX: R05.3 Chronic cough (principal)
CPT/HCPCS: 71046

== ENCOUNTER 2023-02-10 11:00 | Outpatient (RCR) | payer OTHER, SELFPAY ==
[2023-02-05 15:53] VITALS: PULSE 63
== END 2023-03-15 15:52 | disposition home or self-care (01) ==
LOC: ANHCPREHAB 11:00
PROVIDERS: PCP Internal Medicine; Visit Provider Internal Medicine Cardiovascular Disease
DX: Z95.1 Presence of aortocoronary bypass graft (principal)
CPT/HCPCS: 93798

== ENCOUNTER 2023-10-23 15:17 | Observation (INO) | payer OTHER, SELFPAY ==
[2023-10-23] VITALS (19 sets, daily range): BP systolic 131–161; BP diastolic 74–89; PULSE 66–78; RESP 18–27; TEMP 36.9–37.6; O2SAT 95–99; BMI 23.8
--- NOTE | ~2023-10-23 | XR_ITS ---
EXAMINATION: XR chest 1V portable DATE: 10/23/2023 16:34 INDICATION: Cough. TECHNIQUE: A single frontal view of the chest was obtained. COMPARISON: Chest 2 views 12/30/2021 FINDINGS: There is mild atelectasis in left lower lung zone. No pleural effusion or pneumothorax. The heart size is normal. Median sternotomy wires and mediastinal surgical clips are seen, likely from p rior coronary artery bypass grafting. There are retained epicardial pacer wires. There is a left-side d ventriculoperitoneal shunt. IMPRESSION: 1. Mild atelectasis in left lower lung zone. Reviewed, dictated and finalized at location E.
--- NOTE | ~2023-10-23 | CT_ITS ---
EXAMINATION: CT brain wo con DATE: 10/27/2023 13:01 INDICATION: Ventriculoperitoneal shunt. TECHNIQUE: Computed tomography (CT) of the head was performed without intravenous contrast. The mA wa s adjusted according to patient size. Iterative reconstruction technique was employed. The dose-lengt h product was 1059.33 mGy-cm. COMPARISON: Head CT 02/04/2021 FINDINGS: There is chronic encephalomalacia in right frontal lobe subjacent to an old michele hole. Ther e are scattered areas of low attenuation in the cerebral white matter, which is within normal limits for the patient's age. There is no intracranial hemorrhage, acute infarction, or abnormal intracrania l mass lesion. The lateral ventricles and third and fourth ventricles are enlarged. There is a left f rontal ventriculostomy catheter with tip in the lateral ventricles at the midline. There are likely c hanges of ocular lens replacement surgeries. There are changes of right-sided scleral banding procedu re. The paranasal sinuses are clear. The mastoid air cells are normal. IMPRESSION: 1. Chronic encephalomalacia in right frontal lobe. 2. Ventriculomegaly, stable from 02/04/2021. Shunt catheter in expected position. Reviewed, dictated and finalized at location A. IMPRESSION: 1. Chronic encephalomalacia in right frontal lobe. 2. Ventriculomegaly, stable from 02/04/2021. Shunt catheter in expected position .
--- NOTE | 2023-10-23 15:49 | ECG_ITS ---
Test Date: 2023-10-23 16:35:00 Measurements Intervals [place] Rate: 73 P: 11 ID: [id number] QRS: 21 QRSD: 157 T: 11 QT: 421 QTc: 467 Interpretive Statements SINUS RHYTHM RIGHT BUNDLE BRANCH BLOCK [120+ ms QRS DURATION, UPRIGHT V1, 40+ ms S IN I/aVL/V4/V5/V6] T-WAVE ABNORMALITY, CONSIDER LATERAL ISCHEMIA ABNORMAL ELECTROCARDIOGRAM No previous ECG available for comparison Electronically Signed On 10-24-2023 08:28:10 CDT by Geronimo Hoff M.D.
[2023-10-23 16:32] LABS: Hematocrit 41.7 % (42.0-52.0); Hemoglobin 13.7 g/dL (14.0-18.0); Mean Corpuscular HGB Conc 32.9 g/dl (32-36); Mean Corpuscular Hemoglobin 29.5 pg (26-34); Mean Corpuscular Volume 89.9 fl (80-100); Mean Platelet Volume 10.9 fl (7.4-10.4); Platelet Count Result 147 k/mm3 (150-375); Red Blood Count 4.64 M/mm3 (4.6-6.20); White Blood Count 11.9 K/mm3 (4.5-10.0)
[2023-10-23 16:44] LABS: Lactic Acid Reflex 1.1 mmol/L (0.7-2.0)
--- NOTE | 2023-10-23 16:52 | ED.GENADULT ---
HPI - General Adult General Chief complaint: Upper Respiratory Infection <Ulises Allen PA-C - Last Filed: 10/23/23 19:59> Stated complaint: COVID+ 10/21, symptomatic <Ulises Allen PA-C - Last Filed: 10/23/23 19:59> Source: patient <Ulises Allen PA-C - Last Filed: 10/23/23 19:59> Mode of arrival: ambulatory <DINO Issa Last Filed: 10/23/23 19:59> Limitations: altered mental status <Ulises Allen PA-C - Last Filed: 10/23/23 19:59> History of Present Illness HPI narrative: This is a 72-year-old male with PMH of hydrocephalus s/p ELECTRICAL CAD TECHNICIAN shunt, DM type 2, CAD, HTN, HLD who presents to the ED via EMS from home for chief complaint of general weakness and fever. He was tested positive for COVID yesterday. Patient was given Paxlovid yesterday and has been taking Tylenol every 6 hours. Was able to speak on the phone with who is at home sick with COVID. She advises that patient has been very weak and fatigued. He was unable to get out of bed which is abnormal for him. Patient's also states that he was having some slow responses to answers today. She feels that he may have a UTI on top of the COVID due to the way he is acting. She states that he has had UTIs in the past due to incontinence with his hydrocephalus. She does not feel that patient has had severe cough, shortness of breath or chest pain. <Ulises Allen PA-C - Last Filed: 10/23/23 19:59> Related Data Home medications: Home Medications Medication Instructions Recorded Confirmed acetaminophen 500 mg capsule 500 mg PO Q6H PRN Pain 10/23/23 10/23/23 atorvastatin 20 mg tablet 20 mg PO HS 10/23/23 10/23/23 clopidogrel 75 mg tablet 75 mg PO DAILY 10/23/23 10/23/23 insulin degludec 100 unit/mL (3 8 unit subcut HS 10/23/23 10/23/23 mL) subcutaneous pen (Tresiba FlexTouch U-100 insulin) metoprolol tartrate 25 mg tablet 12.5 mg PO BID 10/23/23 10/23/23 nirmatrelvir 150 mg-ritonavir 100 1 ea PO BID 10/23/23 10/23/23 mg tablets in a dose pack (Paxlovid) <Ulises Allen PA-C - Last Filed: 10/23/23 19:59> Allergies/adverse reactions: Allergies Allergy/AdvReac Type Severity Reaction Status Date / Time No Known Allergies Verified 10/23/23 20:17 <Ulises Allen PA-C - Last Filed: 10/23/23 19:59> Review of Systems Review of Systems: All systems as dictated in HPI <Ulises Allen PA-C - Last Filed: 10/23/23 19:59> [facility] Past Medical History Medical History: Medical History DM2 (diabetes mellitus, type 2) Hydrocephalus Normal pressure Hyperlipidemia Hypertension <Ulises Allen PA-C - Last Filed: 10/23/23 19:59> Surgical History Surgical History: Surgical History H/O cataract extraction S/P ELECTRICAL CAD TECHNICIAN shunt <Ulises Allen PA-C - Last Filed: 10/23/23 19:59> Family History Family History: Family History Sibling Family history of malignant neoplasm of kidney, Onset Age: 57 Patient's brother is Father No problems noted. Mother Brain bleed Patient's mother is Family history of type 2 diabetes mellitus Sibling Malignant neoplasm of prostate <DINO Issa Last Filed: 10/23/23 19:59> Social History Social History: Social History Social History: The patient lives with his who is a durable power sports attorney for healthcare. 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 He desires to be a full code. Lifelong nonsmoker. The patient denies any alcohol intake. He denies any marijuana use or illicit drugs. Smoking status: Never smoker Second hand tobacco smoke exposure: No Alcohol intake: never Substance use: never Do You Feel Safe in your Home?: Yes Lack of Transportation: N
[2023-10-23 16:57] LABS: Band Neutrophils Percent 10 % (0-6); Lymphocytes Absolute Manual 0.59 K/mm3 (1.1-4.5); Monocytes Absolute Manual 0.59 K/mm3 (0.1-0.90); Monocytes Percent Manual 5 % (3-9); Neutrophils Absolute Manual 10.71 K/mm3 (1.3-6.7); Neutrophils Percent Manual 80 % (46-73); Platelet Estimate Slightly Decreased (Adequate); Total Cells Counted 100
[2023-10-23 16:58] LABS: Platelet Clumps Present; Schistocytes None Seen
[2023-10-23 17:05] LABS: Alanine Aminotransferase 18 U/L (6-50); Albumin Level 4.3 g/dL (3.5-5.1); Alkaline Phosphatase 97 U/L (38-126); Anion Gap 12 mmol/L (4-12); Aspartate Amino Transferase 25 U/L (17-59); Bilirubin,Total 1.2 mg/dL (0.2-1.3); Blood Urea Nitrogen 26 mg/dL (9-20); CRP 16.7 mg/dL (<1.0); Calcium 9.2 mg/dL (8.4-10.2); Carbon Dioxide 22 mmol/L (22-30); Chloride 103 mmol/L (98-107); Estimated CRCL calculation 56 ml/min; Estimated Glomerular Filt Rate 59; Glucose 156 mg/dL (65-110); Sodium 137 mmol/L (137-145)
[2023-10-23 17:07] LABS: Influenza A QL RT-PCR Negative (Negative); Influenza B QL RT-PCR Negative (Negative); RSV RNA, RT-PCR Negative (Negative); SARS-CoV-2 RNA PCR Positive (Negative)
[2023-10-23] MEDS: SODIUM CHLORIDE 0.9% IV 1,000 ML 999 ML IV CONT (17:20)
[2023-10-23 17:49] LABS: Appearance Urine Cloudy (Clear); Bacteria Urine 4+ /hpf; Bilirubin Urine Negative (Negative); Blood Urine 3+ (Negative); Color Urine Yellow (Yellow); Glucose Urine UA Negative (Negative); Ketones Urine 1+ mg/dL (Negative); Leukocyte Esterase Ur 2+ LEU/UL (Negative); Nitrate Urine Negative (Negative); Non Pathogenic Casts 0-2; Protein Urine 2+ mg/dL (Negative); Specific Grav Ur 1.018 (1.001-1.035); Squamous Epithelial Cell Urine None Seen /hpf (Few); WBC Urine >100 /hpf (0-3); pH Urine 5.5 (5.0-9.0)
[2023-10-23 17:52] LABS: Procalcitonin 0.2 ng/mL
[2023-10-23 17:54] LABS: Add Urine Microscopic? YES
--- NOTE | 2023-10-23 18:00 | PM.IMHP ---
H&P: HPI History of Present Illness Date/Time: 10/23/23 18:00 Chief Complaint: weakness Narrative: Mr. Tay is a 72 year old male with a PMHx: Hydrocephalus s/p: HOSPITAL COOK shunt type 2 diabetes on insulin, HTN, hyperlipidemia presented to the ED from home via EMS with complaints of generalized weakness and fever, was reported patient tested positive for COVID, he has since had exploded yesterday concurrently taking Tylenol every 6 hours. Patient reports he is cared for by his significant other she is also home and positive with COVID. Patient tells me that he has a history of a urinary tract infection, he also reports ongoing productive cough, he denies any chest pain fever nausea or vomiting or abdominal pain at this time. ED Work-up reveals: Initial vitals: b/p 155/89, rr 20, pr 78 sp02 95 % on RA, T: 99.7, patient oxygenating well on RA he was a and O times 3-4, lab work revealed mild elevated white count 11.9 CMP revealed elevated BUN creatinine is normal CRP was elevated lactic acid was normal UA is indicative of UTI with 2+ leuks and > 100 WBC viral PCR reveals positive COVID, showed left lower lobe atelectasis but no overt PNA, 1st dose of Rocephin for UTI was initiated and 80 UA culture pending. Patient admitted in the setting of COVID with general weakness admit to medical floor. [facility] Past Medical History Medical History DM2 (diabetes mellitus, type 2) Hydrocephalus Normal pressure Hyperlipidemia Hypertension Surgical History Surgical History H/O cataract extraction S/P HOSPITAL COOK shunt Family History Family History Sibling Family history of malignant neoplasm of kidney, Onset Age: 57 Patient's brother is Father No problems noted. Mother Brain bleed Patient's mother is Family history of type 2 diabetes mellitus Sibling Malignant neoplasm of prostate Social History Social History Social History: The patient lives with his who is a durable power tax associate attorney for healthcare. 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 He desires to be a full code. Lifelong nonsmoker. The patient denies any alcohol intake. He denies any marijuana use or illicit drugs. Smoking status: Never smoker Second hand tobacco smoke exposure: No Alcohol intake: never Substance use: never Do You Feel Safe in your Home?: Yes Lack of Transportation: No Lack of Food: Never True Current Housing: I Have Housing Concerned About Future Housing: No Difficulty Paying Gas/Electric Bills: No Difficulty Paying for Meds: No Currently Unemployed: No Education: Bachelor's Degree Difficulty w/ Childcare or Family Care: No Gender identity (if verbalized by the patient): Male Spiritual care concerns: No Meds Home Medications and Allergies Home Medications Medication Instructions Recorded Confirmed Type amantadine HCl 100 mg capsule 100 mg PO Q12HR #30 caps 01/22/22 10/23/23 Rx cholecalciferol (vitamin D3) 25 2,000 unit PO DAILY #30 tabs 01/22/22 10/23/23 Rx mcg (1,000 unit) tablet (Vitamin D3) sitagliptin phosphate 100 mg 100 mg PO QAM #30 tabs 01/22/22 10/23/23 Rx tablet (Januvia) acetaminophen 500 mg capsule 500 mg PO Q6H PRN Pain 10/23/23 10/23/23 History atorvastatin 20 mg tablet 20 mg PO HS 10/23/23 10/23/23 History clopidogrel 75 mg tablet 75 mg PO DAILY 10/23/23 10/23/23 History insulin degludec 100 unit/mL (3 8 unit subcut HS 10/23/23 10/23/23 History mL) subcutaneous pen (Tresiba FlexTouch U-100 insulin) metoprolol tartrate 25 mg tablet 12.5 mg PO BID 10/23/23 10/23/23 History nirmatrelvir 150 mg-ritonavir 100 1 ea PO BID 10/23/23 10/23/23 History mg tablets in a dose pack (Paxlovid) Allergies Allergy/AdvReac Type Jessica
--- NOTE | 2023-10-23 20:00 | ADMGEN ---
This patient, Kirit Tay, was admitted to Medical Room 257-01. Patient/family oriented to hospital policies and general routines including ID bracelet, bed and alarms, visiting hours, pain management, procedures, bathroom and other care routines, personal items, smoking policy, room service/diet, and visiting hours. Information on how to activate the Rapid Response Team has been discussed. Patient/Family are encouraged to report perceived risks to care and to ask questions if they do not understand what they are told or what they should do.
[2023-10-24] VITALS (8 sets, daily range): BP systolic 106–156; BP diastolic 60–84; PULSE 59–83; RESP 14–24; TEMP 36.4–37.3; O2SAT 97–99
[2023-10-24 00:09] LABS: Glucose Point of Care 131 mg/dl (65-105)
[2023-10-24 04:23] LABS: Glucose Point of Care 106 mg/dl (65-105)
[2023-10-24 04:49] LABS: Basophils Percent Auto 0.5 % (0.2-1.2); Eosinophils Percent Auto 0.5 % (0-4.4); Hemoglobin 13.4 g/dL (14.0-18.0); Immature Granulocyte Absolute 0.02 K/mm3 (0.00-0.031); Immature Granulocyte Percent A 0.2 % (0-0.5); Lymphocytes Absolute Auto 1.06 K/mm3 (0.9-3.2); Lymphocytes Percent Auto 12.4 % (18.3-44.2); Mean Corpuscular HGB Conc 31.9 g/dl (32-36); Mean Corpuscular Hemoglobin 29.4 pg (26-34); Mean Corpuscular Volume 92.1 fl (80-100); Mean Platelet Volume 11.1 fl (7.4-10.4); Monocytes Absolute Auto 0.8 K/mm3 (0.1-0.6); Monocytes Percent Auto 9.3 % (2.6-8.5); Neutrophils Absolute Auto 6.6 K/mm3 (1.3-6.7); Neutrophils Percent Auto 77.1 % (45.5-73.1); Platelet Count Result 122 k/mm3 (150-375); Red Blood Count 4.56 M/mm3 (4.6-6.20); Red Cell Distribution Width 14.1 % (11.5-14.5); White Blood Count 8.5 K/mm3 (4.5-10.0)
[2023-10-24 05:03] LABS: Anion Gap 8 mmol/L (4-12); Blood Urea Nitrogen 30 mg/dL (9-20); Calcium 9.1 mg/dL (8.4-10.2); Carbon Dioxide 23 mmol/L (22-30); Chloride 107 mmol/L (98-107); Estimated CRCL calculation 56 ml/min; Estimated Glomerular Filt Rate 59; Glucose 106 mg/dL (65-110); Potassium 4.1 mmol/L (3.4-5.0); Sodium 138 mmol/L (137-145)
[2023-10-24 08:12] LABS: Glucose Point of Care 89 mg/dl (65-105)
[2023-10-24] MEDS: BENZONATATE 100 MG CAPSULE PO ×3 (08:46→17:15)
[2023-10-24] MEDS: CLOPIDOGREL BISULFATE 75 MG TABLET PO (08:46)
[2023-10-24] MEDS: CHOLECALCIFEROL 1,000 UNITS TABLET 2000 UNITS PO (08:46)
[2023-10-24] MEDS: AMANTADINE HCL 100 MG CAPSULE PO ×2 (08:46→20:10)
[2023-10-24] MEDS: SITagliptin PHOSPHATE 100 MG TABLET PO (08:46)
[2023-10-24] MEDS: METOPROLOL TARTRATE 12.5 MG TABLET PO ×2 (08:46→20:10)
[2023-10-24] MEDS: ENOXAPARIN 40 MG/0.4 ML SYRINGE SUB-Q (08:49)
[2023-10-24 12:19] LABS: Glucose Point of Care 199 mg/dl (65-105)
--- NOTE | 2023-10-24 13:24 | PM.IMPN ---
Progress Note: A&P Assessment and Plan (1) COVID-19: Code(s): U07.1 - COVID-19 Status: Acute Assessment and Plan: -continue supportive care -patient not requiring oxygen, stable, no indication for remdesivir treatment at this time (2) UTI (urinary tract infection): Code(s): N39.0 - Urinary tract infection, site not specified Status: Acute Assessment and Plan: As evidenced by UA, 2+ protein, 1+ ketones, 3+ blood, urine WBC > 100, urine RBC 6-10 leukocyte esterase 2+ -1st dose ceftriaxone given in the ED -continue ceftriaxone 1 g IV Q 24 hours Urine culture pending, patient has history of yeast -continue to monitor I&O (3) Weakness: Code(s): R53.1 - Weakness Status: Acute Assessment and Plan: -initiate fall precaution, patient lives at home is cared for by spouse -PT/OT eval and treat -may consider care coordination for consult to discharge placement if continues to be weak and unable to care for patient upon discharge (4) DM2 (diabetes mellitus, type 2): Code(s): E11.9 - Type 2 diabetes mellitus without complications Status: Chronic Assessment and Plan: Chronic, last A1c on file is 10/18/2020 was 7.9, will repeat A1c -continue home medication Initiate adult hypoglycemia protocol -initiate bedside glucose management q4h 10/23: Change diet from heart healthy to diabetic carb consistent A1c 6.0, add low dose SSI and hypoglycemia protocol Change fingerstick glucose to ACHS Plan Continue home medications: VTE Prophylaxis: Enoxaparin subQ DIET: Heart healthy Anticipated hospital stay: > 2 days Code Status: Full code Time Spent With Patient Time with patient: Greater than 35 minutes Subjective Date/time seen: 10/24/23 13:24 Interval history: Patient answers most questions with 1-2 words. No dyspnea, mild cough at times. Patient denies nausea, vomiting or abdominal pain. COVID positive, was started on Paxlovid, does not meet criteria for Remdesivir at this time. No supplemental oxygen needed. Patient is receiving treatment for UTI, urine culture pending. PT/OT consulted for possible placement needs given that is primary caregiver and she is very ill with COVID also and cannot manage caring for him at home right now. Review of Systems Review of Systems: All systems reviewed & are unremarkable except as noted in HPI and below Exam Narrative: General: Awake, answers in 1-2 word responses, seems oriented but hard to tell, no acute distress HEENT: PERRL, EOMI. Oral mucosa moist. Neck: Supple. No midline cervical tenderness. Respiratory: Respirations are non- labored and lungs are clear to auscultation bilaterally, minimal periodic cough Cardiovascular: Regular rate and rhythm with S1-S2. Gastrointestinal: Abdomen is soft, non-tender, and non-distended with positive bowel sounds. Skin: Multiple areas bilateral arm erythema/bruising Extremities: No cyanosis, clubbing, or edema. Radial and pedal pulses intact. Neurological: awake, appears oriented, moves all extremities, generalized weakness Psychiatric: cooperative with normal mood and flat/blunt affect, hard to county court judge, 1-2 word responses Objective Data Vital Signs Vital Signs: Vital Signs - 24 hr 10/23/23 15:22 10/23/23 15:26 10/23/23 16:50 Temperature 37.6 C H Pulse Rate 78 73 Respiratory Rate 20 20 Blood Pressure 155/89 H 131/79 Pulse Oximetry 95 95 98 Oxygen Delivery Room Air Room Air 10/23/23 17:08 10/23/23 17:15 10/23/23 17:16 Temperature Pulse Rate 75 73 73 Respiratory Rate 25 H 25 H 25 H Blood Pressure 138/83 Pulse Oximetry 96 96 97 Oxygen Delivery 10/23/23 17:30 10/23/23 17:31 10/23/23 17:45 Temperature Pulse Rate 74 71 71 Respiratory Rate 27 H 25 H 24 H Blood Pressure 139/84 Pulse Oximetry 96 97 96 Oxygen Delivery 10/23/23 17:46 10/23/23 18:00 10/23/23 18:01 Temperature Pulse Rate 71 70 67 Respir
[2023-10-24 16:15] LABS: Glucose Point of Care 155 mg/dl (65-105)
[2023-10-24 19:59] LABS: Glucose Point of Care 180 mg/dl (65-105)
[2023-10-24] MEDS: ATORVASTATIN 20 MG TABLET PO (20:10)
[2023-10-24] MEDS: INSULIN GLARGINE (*BKC) 100 UNITS/ML 8 UNITS SUB-Q (20:10)
[2023-10-25] VITALS (8 sets, daily range): BP systolic 127–146; BP diastolic 70–77; PULSE 67–77; RESP 16–20; TEMP 36.2–37.6; O2SAT 97–100
[2023-10-25 04:58] LABS: Basophils Percent Auto 0.6 % (0.2-1.2); Eosinophils Absolute Auto 0.1 K/mm3 (0-0.3); Hematocrit 40.3 % (42.0-52.0); Hemoglobin 12.8 g/dL (14.0-18.0); Immature Granulocyte Absolute 0.02 K/mm3 (0.00-0.031); Immature Granulocyte Percent A 0.3 % (0-0.5); Immature Platelet Fraction Pct 4.1 % (0.9-11.2); Lymphocytes Absolute Auto 1.48 K/mm3 (0.9-3.2); Lymphocytes Percent Auto 23.3 % (18.3-44.2); Mean Corpuscular HGB Conc 31.8 g/dl (32-36); Mean Corpuscular Hemoglobin 29.2 pg (26-34); Mean Platelet Volume 11.1 fl (7.4-10.4); Monocytes Absolute Auto 0.6 K/mm3 (0.1-0.6); Monocytes Percent Auto 9.9 % (2.6-8.5); Neutrophils Absolute Auto 4.1 K/mm3 (1.3-6.7); Neutrophils Percent Auto 63.9 % (45.5-73.1); Platelet Count Result 135 k/mm3 (150-375); Red Blood Count 4.38 M/mm3 (4.6-6.20); White Blood Count 6.4 K/mm3 (4.5-10.0)
[2023-10-25 05:08] LABS: Anion Gap 6 mmol/L (4-12); Blood Urea Nitrogen 29 mg/dL (9-20); Calcium 8.6 mg/dL (8.4-10.2); Carbon Dioxide 27 mmol/L (22-30); Chloride 104 mmol/L (98-107); Estimated CRCL calculation 52 ml/min; Estimated Glomerular Filt Rate 54; Glucose 110 mg/dL (65-110); Potassium 3.5 mmol/L (3.4-5.0); Sodium 137 mmol/L (137-145)
--- NOTE | 2023-10-25 07:46 | PM.IMPN ---
Progress Note: A&P Assessment and Plan (1) COVID-19: Code(s): U07.1 - COVID-19 Status: Acute Assessment and Plan: 10/25/23: Currently on room air Continue supportive care (2) UTI (urinary tract infection): Code(s): N39.0 - Urinary tract infection, site not specified Status: Acute Assessment and Plan: 10/25/23: UA showed 2+ urine protein, 1+ urine ketones, 3+ urine blood, 2+ leukocytes, 6-10 urine RBC, greater than 100 urine WBC, 4+ urine bacteria. Continue Rocephin Urine and blood cultures are pending (3) Weakness: Code(s): R53.1 - Weakness Status: Acute Assessment and Plan: 10/25/23: Continue fall precautions PT and OT to eval today (4) DM2 (diabetes mellitus, type 2): Code(s): E11.9 - Type 2 diabetes mellitus without complications Status: Chronic Assessment and Plan: 10/25/23: Blood sugars ranging 110-180 Hemoglobin A1c 6.0 Accu-Cheks AC and HS Low-dose sliding scale insulin ordered Continue Lantus 8 units at night Continue Januvia Diabetic diet ordered Hypoglycemic protocol in place Time Spent With Patient Time with patient: 25 - 35 minutes Subjective Date/time seen: 10/25/23 07:46 Interval history: This is a 72-year-old male who presented to the hospital on 10/23/2023 with complaints of generalized weakness, fever, COVID. Workup in the hospital included chest x-ray which showed mild atelectasis in the left lower lung zone. Initial labs showed a white blood cell count of 11.9, hemoglobin 13.7, platelet count 147, hemoglobin A1c 6.0, lactic acid 1.1. UA was obtained and showed 2+ urine protein, 1+ urine ketone, 3+ urine blood, 2+ leukocytes, 6-10 urine RBC, greater than 100 urine wbc's, 4+ urine bacteria. Respiratory panel was obtained and was positive for COVID, negative for influenza a and B and RSV. Blood and urine cultures are obtained and are pending. Patient was started on Rocephin. He is currently on room air and not requiring any remdesivir at this time. On examination today patient is alert and oriented x3, lying in the bed. Patient denies any fever, chills, nausea, vomiting, diarrhea, abdominal pain, chest pain, or shortness of breath. Labs today show a white blood cell count of 6.4, hemoglobin 12.8, platelet count 135, otherwise unremarkable. Continue Rocephin. PT and OT to evaluate today. Review of Systems Review of Systems: All systems reviewed & are unremarkable except as noted in HPI and below Constitutional: Constitutional: Reports as per HPI and Reports no additional constitutional complaints Eyes: Eyes: Reports as per HPI and Reports no additional eye complaints ENT: Reports system reviewed and no additional complaints, except as documented and Reports as per HPI Cardiovascular: Cardiovascular: Reports as per HPI and Reports no additional cardiovascular complaints Respiratory: Respiratory: Reports as per HPI and Reports no additional respiratory complaints Gastrointestinal: Gastrointestinal: Reports as per HPI and Reports no additional gastrointestinal complaints Genitourinary: Genitourinary: Reports no additional male genitourinary complaints and Reports as per HPI Musculoskeletal: Musculoskeletal: Reports no additional musculoskeletal complaints and Reports as per HPI Integumentary/Breasts: Skin/Breast: Reports system reviewed and no additional complaints, except as docu and Reports as per HPI Neurologic: Reports system reviewed and no additional complaints, except as documented and Reports as per HPI Psychiatric: Psychiatric: Reports no additional psychiatric complaints and Reports as per HPI Exam Narrative: General: In no acute distress, well nourished Head: atraumatic, no encephalopathy Eyes: EOMI, PERRLA, sclera clear ENT: moist mucous membranes, nasal passages clear Neck: supple, no JVD, no adenopathy, trachea midline Cardiac: Normal S1 and S2. RRR, No murmur, gallops or fric
[2023-10-25 08:39] LABS: Glucose Point of Care 98 mg/dl (65-105)
[2023-10-25] MEDS: CLOPIDOGREL BISULFATE 75 MG TABLET PO (09:46)
[2023-10-25] MEDS: AMANTADINE HCL 100 MG CAPSULE PO ×2 (09:46→21:06)
[2023-10-25] MEDS: BENZONATATE 100 MG CAPSULE PO ×3 (09:46→17:57)
[2023-10-25] MEDS: CHOLECALCIFEROL 1,000 UNITS TABLET 2000 UNITS PO (09:46)
[2023-10-25] MEDS: METOPROLOL TARTRATE 12.5 MG TABLET PO ×2 (09:47→21:06)
[2023-10-25] MEDS: SITagliptin PHOSPHATE 100 MG TABLET PO (09:47)
[2023-10-25] MEDS: ENOXAPARIN 40 MG/0.4 ML SYRINGE SUB-Q (10:03)
[2023-10-25 12:12] LABS: Glucose Point of Care 145 mg/dl (65-105)
[2023-10-25 17:01] LABS: Glucose Point of Care 133 mg/dl (65-105)
[2023-10-25 20:32] LABS: Glucose Point of Care 144 mg/dl (65-105)
[2023-10-25] MEDS: ATORVASTATIN 20 MG TABLET PO (21:07)
[2023-10-25] MEDS: INSULIN GLARGINE (*BKC) 100 UNITS/ML 8 UNITS SUB-Q (21:08)
[2023-10-26] VITALS (7 sets, daily range): BP systolic 128–143; BP diastolic 61–84; PULSE 65–89; RESP 16–18; TEMP 36.3–36.8; O2SAT 97–99
[2023-10-26 04:55] LABS: Basophils Percent Auto 0.7 % (0.2-1.2); Eosinophils Absolute Auto 0.2 K/mm3 (0-0.3); Eosinophils Percent Auto 3.7 % (0-4.4); Hematocrit 38.1 % (42.0-52.0); Hemoglobin 12.3 g/dL (14.0-18.0); Immature Granulocyte Absolute 0.01 K/mm3 (0.00-0.031); Immature Granulocyte Percent A 0.2 % (0-0.5); Lymphocytes Absolute Auto 1.38 K/mm3 (0.9-3.2); Lymphocytes Percent Auto 22.9 % (18.3-44.2); Mean Corpuscular HGB Conc 32.3 g/dl (32-36); Mean Corpuscular Hemoglobin 29.9 pg (26-34); Mean Corpuscular Volume 92.5 fl (80-100); Mean Platelet Volume 11.3 fl (7.4-10.4); Monocytes Absolute Auto 0.6 K/mm3 (0.1-0.6); Neutrophils Absolute Auto 3.8 K/mm3 (1.3-6.7); Neutrophils Percent Auto 62.5 % (45.5-73.1); Platelet Count Result 149 k/mm3 (150-375); Red Blood Count 4.12 M/mm3 (4.6-6.20); Red Cell Distribution Width 13.9 % (11.5-14.5)
[2023-10-26 05:14] LABS: Anion Gap 7 mmol/L (4-12); Blood Urea Nitrogen 31 mg/dL (9-20); Calcium 8.4 mg/dL (8.4-10.2); Carbon Dioxide 24 mmol/L (22-30); Chloride 108 mmol/L (98-107); Estimated CRCL calculation 48 ml/min; Estimated Glomerular Filt Rate 50; Glucose 110 mg/dL (65-110); Magnesium 2.1 mg/dL (1.6-2.3); Potassium 3.7 mmol/L (3.4-5.0); Sodium 139 mmol/L (137-145)
[2023-10-26 08:37] LABS: Glucose Point of Care 119 mg/dl (65-105)
[2023-10-26] MEDS: CHOLECALCIFEROL 1,000 UNITS TABLET 2000 UNITS PO (08:50)
[2023-10-26] MEDS: ENOXAPARIN 40 MG/0.4 ML SYRINGE SUB-Q (08:50)
[2023-10-26] MEDS: AMANTADINE HCL 100 MG CAPSULE PO ×2 (08:50→20:37)
[2023-10-26] MEDS: CLOPIDOGREL BISULFATE 75 MG TABLET PO (08:50)
[2023-10-26] MEDS: BENZONATATE 100 MG CAPSULE PO ×3 (08:50→17:38)
[2023-10-26] MEDS: SITagliptin PHOSPHATE 100 MG TABLET PO (08:50)
[2023-10-26] MEDS: METOPROLOL TARTRATE 12.5 MG TABLET PO ×2 (08:51→20:41)
[2023-10-26 12:27] LABS: Glucose Point of Care 171 mg/dl (65-105)
[2023-10-26] MEDS: CEPHALEXIN 500 MG CAPSULE PO ×2 (12:35→20:38)
--- NOTE | 2023-10-26 15:36 | PM.IMPN ---
Progress Note: A&P Assessment and Plan (1) COVID-19: Code(s): U07.1 - COVID-19 Status: Acute Assessment and Plan: 10/25/23: Currently on room air Continue supportive care 10/26/23: No change to current treatment plan (2) UTI (urinary tract infection): Code(s): N39.0 - Urinary tract infection, site not specified Status: Acute Assessment and Plan: 10/25/23: UA showed 2+ urine protein, 1+ urine ketones, 3+ urine blood, 2+ leukocytes, 6-10 urine RBC, greater than 100 urine WBC, 4+ urine bacteria. Continue Rocephin Urine and blood cultures are pending 10/26/23: Urine culture showed E coli Rocephin changed to Keflex (3) Weakness: Code(s): R53.1 - Weakness Status: Acute Assessment and Plan: 10/25/23: Continue fall precautions PT and OT to eval today 10/26/23: Continue PT and OT Case coordination working on SNF placement (4) DM2 (diabetes mellitus, type 2): Code(s): E11.9 - Type 2 diabetes mellitus without complications Status: Chronic Assessment and Plan: 10/25/23: Blood sugars ranging 110-180 Hemoglobin A1c 6.0 Accu-Cheks AC and HS Low-dose sliding scale insulin ordered Continue Lantus 8 units at night Continue Januvia Diabetic diet ordered Hypoglycemic protocol in place 10/26/23: No change to current treatment plan Time Spent With Patient Time with patient: 25 - 35 minutes Subjective Date/time seen: 10/26/23 15:36 Interval history: 10/25/23: This is a 72-year-old male who presented to the hospital on 10/23/2023 with complaints of generalized weakness, fever, COVID. Workup in the hospital included chest x-ray which showed mild atelectasis in the left lower lung zone. Initial labs showed a white blood cell count of 11.9, hemoglobin 13.7, platelet count 147, hemoglobin A1c 6.0, lactic acid 1.1. UA was obtained and showed 2+ urine protein, 1+ urine ketone, 3+ urine blood, 2+ leukocytes, 6-10 urine RBC, greater than 100 urine wbc's, 4+ urine bacteria. Respiratory panel was obtained and was positive for COVID, negative for influenza a and B and RSV. Blood and urine cultures are obtained and are pending. Patient was started on Rocephin. He is currently on room air and not requiring any remdesivir at this time. On examination today patient is alert and oriented x3, lying in the bed. Patient denies any fever, chills, nausea, vomiting, diarrhea, abdominal pain, chest pain, or shortness of breath. Labs today show a white blood cell count of 6.4, hemoglobin 12.8, platelet count 135, otherwise unremarkable. Continue Rocephin. PT and OT to evaluate today. 10/26/23: No new complaints today. Labs today show a hemoglobin 12.3, creatinine 1.4, EGFR 50, blood sugars ranging 119-171. Urine culture showing E coli and patient was transitioned to Keflex. PT and OT working with patient. Case coordination working on SNF placement. Review of Systems Review of Systems: All systems reviewed & are unremarkable except as noted in HPI and below Constitutional: Constitutional: Reports as per HPI and Reports no additional constitutional complaints Eyes: Eyes: Reports as per HPI and Reports no additional eye complaints ENT: Reports system reviewed and no additional complaints, except as documented and Reports as per HPI Cardiovascular: Cardiovascular: Reports as per HPI and Reports no additional cardiovascular complaints Respiratory: Respiratory: Reports as per HPI and Reports no additional respiratory complaints Gastrointestinal: Gastrointestinal: Reports as per HPI and Reports no additional gastrointestinal complaints Genitourinary: Genitourinary: Reports no additional male genitourinary complaints and Reports as per HPI Musculoskeletal: Musculoskeletal: Reports no additional musculoskeletal complaints and Reports as per HPI Integumentary/Breasts: Skin/Breast: Reports system reviewed and no additional complaints, except as docu an
[2023-10-26 17:50] LABS: Glucose Point of Care 269 mg/dl (65-105)
[2023-10-26] MEDS: INSULIN ASPART (*BKC) 100 UNITS/ML SUB-Q (18:29)
[2023-10-26] MEDS: ATORVASTATIN 20 MG TABLET PO (20:38)
[2023-10-26] MEDS: INSULIN GLARGINE (*BKC) 100 UNITS/ML 8 UNITS SUB-Q (20:40)
[2023-10-26 21:01] LABS: Glucose Point of Care 243 mg/dl (65-105)
[2023-10-27 04:02] VITALS: BP 129/65; PULSE 53; RESP 18; TEMP 36.4; O2SAT 97
[2023-10-27 04:43] LABS: Basophils Percent Auto 0.3 % (0.2-1.2); Eosinophils Absolute Auto 0.1 K/mm3 (0-0.3); Eosinophils Percent Auto 1.5 % (0-4.4); Hematocrit 38.2 % (42.0-52.0); Hemoglobin 12.2 g/dL (14.0-18.0); Immature Granulocyte Absolute 0.03 K/mm3 (0.00-0.031); Immature Granulocyte Percent A 0.3 % (0-0.5); Lymphocytes Absolute Auto 1.39 K/mm3 (0.9-3.2); Mean Corpuscular HGB Conc 31.9 g/dl (32-36); Mean Corpuscular Hemoglobin 29.8 pg (26-34); Mean Corpuscular Volume 93.4 fl (80-100); Monocytes Absolute Auto 0.9 K/mm3 (0.1-0.6); Monocytes Percent Auto 10.7 % (2.6-8.5); Neutrophils Absolute Auto 6.2 K/mm3 (1.3-6.7); Neutrophils Percent Auto 71.2 % (45.5-73.1); Platelet Count Result 157 k/mm3 (150-375); Red Blood Count 4.09 M/mm3 (4.6-6.20); Red Cell Distribution Width 14.1 % (11.5-14.5); White Blood Count 8.7 K/mm3 (4.5-10.0)
[2023-10-27 04:59] LABS: Alanine Aminotransferase 17 U/L (6-50); Albumin Level 3.6 g/dL (3.5-5.1); Alkaline Phosphatase 80 U/L (38-126); Anion Gap 6 mmol/L (4-12); Aspartate Amino Transferase 29 U/L (17-59); Bilirubin,Total 0.7 mg/dL (0.2-1.3); Blood Urea Nitrogen 26 mg/dL (9-20); Calcium 8.7 mg/dL (8.4-10.2); Carbon Dioxide 22 mmol/L (22-30); Chloride 111 mmol/L (98-107); Estimated CRCL calculation 56 ml/min; Estimated Glomerular Filt Rate 59; Glucose 133 mg/dL (65-110); Magnesium 2.2 mg/dL (1.6-2.3); Potassium 3.7 mmol/L (3.4-5.0); Sodium 139 mmol/L (137-145)
[2023-10-27 08:01] LABS: Glucose Point of Care 126 mg/dl (65-105)
[2023-10-27] MEDS: ENOXAPARIN 40 MG/0.4 ML SYRINGE SUB-Q (09:03)
[2023-10-27] MEDS: SITagliptin PHOSPHATE 100 MG TABLET PO (09:03)
[2023-10-27 09:04] VITALS: PULSE 67
[2023-10-27] MEDS: CEPHALEXIN 500 MG CAPSULE PO ×2 (09:04→20:47)
[2023-10-27] MEDS: BENZONATATE 100 MG CAPSULE PO ×3 (09:04→17:22)
[2023-10-27] MEDS: AMANTADINE HCL 100 MG CAPSULE PO ×2 (09:04→20:47)
[2023-10-27] MEDS: CHOLECALCIFEROL 1,000 UNITS TABLET 2000 UNITS PO (09:04)
[2023-10-27] MEDS: METOPROLOL TARTRATE 12.5 MG TABLET PO ×2 (09:04→20:48)
[2023-10-27] MEDS: CLOPIDOGREL BISULFATE 75 MG TABLET PO (09:04)
[2023-10-27 11:46] LABS: Glucose Point of Care 146 mg/dl (65-105)
--- NOTE | 2023-10-27 12:48 | P.PNIM_ITS ---
Progress Note: A&P Assessment and Plan (1) COVID-19: Code(s): U07.1 - COVID-19 Status: Acute Assessment and Plan: 10/25/23: * Currently on room air * Continue supportive care 10/26/23: * No change to current treatment plan (2) UTI (urinary tract infection): Code(s): N39.0 - Urinary tract infection, site not specified Status: Acute Assessment and Plan: 10/25/23: * UA showed 2+ urine protein, 1+ urine ketones, 3+ urine blood, 2+ leukocytes, 6-10 urine RBC, greater than 100 urine WBC, 4+ urine bacteria. * Continue Rocephin * Urine and blood cultures are pending 10/26/23: * Urine culture showed E coli * Rocephin changed to Keflex 10/27/23: * Continue Keflex * Blood culture still showing no growth on preliminary read (3) Weakness: Code(s): R53.1 - Weakness Status: Acute Assessment and Plan: 10/25/23: * Continue fall precautions * PT and OT to eval today 10/26/23: * Continue PT and OT * Case coordination working on SNF placement 10/27/23: * Continue PT and OT * Case coordination working on SNF placement * concerned with patient's increased weakness and history of PUMP REBUILDER shunt, she is requesting CT scan the brain. We will go ahead and obtain this today. (4) DM2 (diabetes mellitus, type 2): Code(s): E11.9 - Type 2 diabetes mellitus without complications Status: Chronic Assessment and Plan: 10/25/23: * Blood sugars ranging 110-180 * Hemoglobin A1c 6.0 * Accu-Cheks AC and HS * Low-dose sliding scale insulin ordered * Continue Lantus 8 units at night * Continue Januvia * Diabetic diet ordered * Hypoglycemic protocol in place 10/26/23: * No change to current treatment plan Time Spent With Patient Time with patient: 25 - 35 minutes Subjective Date/time seen: 10/27/23 12:48 Interval history: 10/25/23: This is a 72-year-old male who presented to the hospital on 10/23/2023 with complaints of generalized weakness, fever, COVID. Workup in the hospital included chest x-ray which showed mild atelectasis in the left lower lung zone. Initial labs showed a white blood cell count of 11.9, hemoglobin 13.7, platelet count 147, hemoglobin A1c 6.0, lactic acid 1.1. UA was obtained and showed 2+ urine protein, 1+ urine ketone, 3+ urine blood, 2+ leukocytes, 6-10 urine RBC, greater than 100 urine wbc's, 4+ urine bacteria. Respiratory panel was obtained and was positive for COVID, negative for influenza a and B and RSV. Blood and urine cultures are obtained and are pending. Patient was started on Rocephin. He is currently on room air and not requiring any remdesivir at this time. On examination today patient is alert and oriented x3, lying in the bed. Patient denies any fever, chills, nausea, vomiting, diarrhea, abdominal pain, chest pain, or shortness of breath. Labs today show a white blood cell count of 6.4, hemoglobin 12.8, platelet count 135, otherwise unremarkable. Continue Rocephin. PT and OT to evaluate today. 10/26/23: No new complaints today. Labs today show a hemoglobin 12.3, creatinine 1.4, E GFR 50, blood sugars ranging 119-171. Urine culture showing E coli and patient was transitioned to Keflex. PT and OT working with patient. Case coordination working on SNF placement. 10/27/23: No new complaints today. Labs today show a white blood cell count of 8.7, hemoglobin 12.2, otherwise unremarkable. Patient continues on Keflex. had some concerns about his weakness and requesting that we checked his PUMP REBUILDER shunt. We will go ahead and get a head CT toda
--- NOTE | 2023-10-27 12:48 | PM.IMPN ---
Progress Note: A&P Assessment and Plan (1) COVID-19: Code(s): U07.1 - COVID-19 Status: Acute Assessment and Plan: 10/25/23: Currently on room air Continue supportive care 10/26/23: No change to current treatment plan (2) UTI (urinary tract infection): Code(s): N39.0 - Urinary tract infection, site not specified Status: Acute Assessment and Plan: 10/25/23: UA showed 2+ urine protein, 1+ urine ketones, 3+ urine blood, 2+ leukocytes, 6-10 urine RBC, greater than 100 urine WBC, 4+ urine bacteria. 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 We will go ahead and obtain this today. (4) DM2 (diabetes mellitus, type 2): Code(s): E11.9 - Type 2 diabetes mellitus without complications Status: Chronic Assessment and Plan: 10/25/23: Blood sugars ranging 110-180 Hemoglobin A1c 6.0 Accu-Cheks AC and HS Low-dose sliding scale insulin ordered Continue Lantus 8 units at night Continue Januvia Diabetic diet ordered Hypoglycemic protocol in place 10/26/23: No change to current treatment plan Time Spent With Patient Time with patient: 25 - 35 minutes Subjective Date/time seen: 10/27/23 12:48 Interval history: 10/25/23: This is a 72-year-old male who presented to the hospital on 10/23/2023 with complaints of generalized weakness, fever, COVID. Workup in the hospital included chest x-ray which showed mild atelectasis in the left lower lung zone. Initial labs showed a white blood cell count of 11.9, hemoglobin 13.7, platelet count 147, hemoglobin A1c 6.0, lactic acid 1.1. UA was obtained and showed 2+ urine protein, 1+ urine ketone, 3+ urine blood, 2+ leukocytes, 6-10 urine RBC, greater than 100 urine wbc's, 4+ urine bacteria. Respiratory panel was obtained and was positive for COVID, negative for influenza a and B and RSV. Blood and urine cultures are obtained and are pending. Patient was started on Rocephin. He is currently on room air and not requiring any remdesivir at this time. On examination today patient is alert and oriented x3, lying in the bed. Patient denies any fever, chills, nausea, vomiting, diarrhea, abdominal pain, chest pain, or shortness of breath. Labs today show a white blood cell count of 6.4, hemoglobin 12.8, platelet count 135, otherwise unremarkable. Continue Rocephin. PT and OT to evaluate today. 10/26/23: No new complaints today. Labs today show a hemoglobin 12.3, creatinine 1.4, EGFR 50, blood sugars ranging 119-171. Urine culture showing E coli and patient was transitioned to Keflex. PT and OT working with patient. Case coordination working on SNF placement. 10/27/23: No new complaints today. Labs today show a white blood cell count of 8.7, hemoglobin 12.2, otherwise unremarkable. Patient continues on Keflex. had some concerns about his weakness and requesting that we checked his RU[employer] INS[employer] TESTER shunt. We will go ahead and get a head CT today. Case coordination working on SNF placement. Review of Systems Review of Systems: All systems reviewed & are unremarkable except as noted in HPI and below Constitutional: Constitutional: Reports as per HPI and Reports no additional constitutional complaints Eyes: Eyes: Reports as per HPI and Reports no additional eye complaints ENT: Reports system reviewed and no additional complaints, except as documented and Re
[2023-10-27 15:50] VITALS: BP 110/60; PULSE 64; RESP 12; TEMP 36.6; O2SAT 99
[2023-10-27 17:17] LABS: Glucose Point of Care 143 mg/dl (65-105)
[2023-10-27 19:44] VITALS: BP 131/62; PULSE 65; RESP 18; TEMP 36.7; O2SAT 98
[2023-10-27 20:37] LABS: Glucose Point of Care 150 mg/dl (65-105)
[2023-10-27] MEDS: ATORVASTATIN 20 MG TABLET PO (20:47)
[2023-10-27 20:48] VITALS: PULSE 65
[2023-10-27] MEDS: INSULIN GLARGINE (*BKC) 100 UNITS/ML 8 UNITS SUB-Q (20:48)
[2023-10-28 02:00] VITALS: BP 118/55; PULSE 60; RESP 18; TEMP 36.9; O2SAT 98
[2023-10-28 04:47] LABS: Basophils Percent Auto 0.5 % (0.2-1.2); Eosinophils Absolute Auto 0.2 K/mm3 (0-0.3); Eosinophils Percent Auto 3.1 % (0-4.4); Hemoglobin 11.6 g/dL (14.0-18.0); Immature Granulocyte Absolute 0.06 K/mm3 (0.00-0.031); Immature Granulocyte Percent A 0.8 % (0-0.5); Lymphocytes Absolute Auto 1.64 K/mm3 (0.9-3.2); Lymphocytes Percent Auto 21.5 % (18.3-44.2); Mean Corpuscular HGB Conc 31.4 g/dl (32-36); Mean Corpuscular Hemoglobin 29.3 pg (26-34); Mean Corpuscular Volume 93.4 fl (80-100); Monocytes Absolute Auto 0.8 K/mm3 (0.1-0.6); Monocytes Percent Auto 9.9 % (2.6-8.5); Neutrophils Absolute Auto 4.9 K/mm3 (1.3-6.7); Neutrophils Percent Auto 64.2 % (45.5-73.1); Platelet Count Result 170 k/mm3 (150-375); Red Blood Count 3.96 M/mm3 (4.6-6.20); Red Cell Distribution Width 13.9 % (11.5-14.5); White Blood Count 7.6 K/mm3 (4.5-10.0)
[2023-10-28 05:10] LABS: Anion Gap 7 mmol/L (4-12); Blood Urea Nitrogen 24 mg/dL (9-20); Calcium 8.6 mg/dL (8.4-10.2); Carbon Dioxide 23 mmol/L (22-30); Chloride 110 mmol/L (98-107); Estimated CRCL calculation 61 ml/min; Estimated Glomerular Filt Rate > 60; Glucose 134 mg/dL (65-110); Magnesium 2.1 mg/dL (1.6-2.3); Potassium 3.6 mmol/L (3.4-5.0); Sodium 140 mmol/L (137-145)
[2023-10-28 06:00] VITALS: BP 121/67; PULSE 61; RESP 18; TEMP 36.3; O2SAT 99
[2023-10-28 08:00] LABS: Glucose Point of Care 108 mg/dl (65-105)
[2023-10-28] MEDS: SITagliptin PHOSPHATE 100 MG TABLET PO (08:19)
[2023-10-28] MEDS: CEPHALEXIN 500 MG CAPSULE PO (08:19)
[2023-10-28] MEDS: CHOLECALCIFEROL 1,000 UNITS TABLET 2000 UNITS PO (08:19)
[2023-10-28] MEDS: CLOPIDOGREL BISULFATE 75 MG TABLET PO (08:20)
[2023-10-28] MEDS: BENZONATATE 100 MG CAPSULE PO ×2 (08:20→12:38)
[2023-10-28 08:21] VITALS: PULSE 76
[2023-10-28] MEDS: METOPROLOL TARTRATE 12.5 MG TABLET PO (08:21)
[2023-10-28] MEDS: ENOXAPARIN 40 MG/0.4 ML SYRINGE SUB-Q (08:23)
[2023-10-28] MEDS: AMANTADINE HCL 100 MG CAPSULE PO (08:23)
--- NOTE | 2023-10-28 10:17 | PM.DS ---
DS: Admitting Diagnosis Discharge Date 10/28/23 Admitting Diagnosis COVID-19 UTI Weakness Type 2 diabetes mellitus DS: Discharge Diagnosis Discharge Diagnosis (1) COVID-19: Code(s): U07.1 - COVID-19 Status: Acute (2) UTI (urinary tract infection): Code(s): N39.0 - Urinary tract infection, site not specified Status: Acute (3) Weakness: Code(s): R53.1 - Weakness Status: Acute (4) DM2 (diabetes mellitus, type 2): Code(s): E11.9 - Type 2 diabetes mellitus without complications Status: Chronic DS: Summary Hospital Course Reason for hospitalization: COVID-19 UTI Weakness Type 2 diabetes mellitus Hospital Course: 10/25/23: This is a 72-year-old male who presented to the hospital on 10/23/2023 with complaints of generalized weakness, fever, COVID. Workup in the hospital included chest x-ray which showed mild atelectasis in the left lower lung zone. Initial labs showed a white blood cell count of 11.9, hemoglobin 13.7, platelet count 147, hemoglobin A1c 6.0, lactic acid 1.1. UA was obtained and showed 2+ urine protein, 1+ urine ketone, 3+ urine blood, 2+ leukocytes, 6-10 urine RBC, greater than 100 urine wbc's, 4+ urine bacteria. Respiratory panel was obtained and was positive for COVID, negative for influenza a and B and RSV. Blood and urine cultures are obtained and are pending. Patient was started on Rocephin. He is currently on room air and not requiring any remdesivir at this time. On examination today patient is alert and oriented x3, lying in the bed. Patient denies any fever, chills, nausea, vomiting, diarrhea, abdominal pain, chest pain, or shortness of breath. Labs today show a white blood cell count of 6.4, hemoglobin 12.8, platelet count 135, otherwise unremarkable. Continue Rocephin. PT and OT to evaluate today. 10/26/23: No new complaints today. Labs today show a hemoglobin 12.3, creatinine 1.4, EGFR 50, blood sugars ranging 119-171. Urine culture showing E coli and patient was transitioned to Keflex. PT and OT working with patient. Case coordination working on SNF placement. 10/27/23: No new complaints today. Labs today show a white blood cell count of 8.7, hemoglobin 12.2, otherwise unremarkable. Patient continues on Keflex. 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 We will go ahead and get a head CT today. Case coordination working on SNF placement. 10/28/23: No new complaints today. Labs today show hemoglobin of 11.6, otherwise unremarkable. Blood cultures still showing no growth to date on preliminary read. CT of the head showed chronic encephalomalacia in right frontal lobe, ventriculomegaly, stable. Shunt catheter in expected position. Patient is stable for discharge to SNF today. He will need to finish his antibiotic and follow-up with primary care physician in 1 week. Final diagnosis: COVID-19, UTI, weakness Status at Discharge Cognitive/behavioral status at discharge: Alert oriented x3 Functional status at discharge: uses cane/walker Overall status at discharge: patient is progressing back to baseline Time Spent with Patient Time attestation: Total time spent providing and/or coordinating discharge services: Time spent: Greater than 30 minutes Exam Narrative: General: In no acute distress, well nourished Head: atraumatic, no encephalopathy Eyes: EOMI, PERRLA, sclera clear ENT: moist mucous membranes, nasal passages clear Neck: supple, no JVD, no adenopathy, trachea midline Cardiac: Normal S1 and S2. RRR, No murmur, gallops or friction rubs, peripheral pulses intact. Respiratory: Lungs clear to auscultation, no adventitious lung sounds, currently on room air Gastrointestinal: soft, non-distended, non-tender, normoactive bowel sounds. : voiding without difficulty. Extremities: moves all extremities well, no edema, good ROM, strength 5/5 Skin: clean, dry, intact. No wounds or lesions. Ne
[2023-10-28 11:35] LABS: Glucose Point of Care 164 mg/dl (65-105)
== END 2023-10-28 14:35 ==
LOC: ANHED 15:41 → ANH2MED 19:44
PROVIDERS: Nurse Practitioner; Admitting Provider Hospitalist; Emergency Provider Physician Assistant; PCP Internal Medicine; Visit Provider Nurse Practitioner Acute Care
DX: U07.1 COVID-19 (principal); N39.0 Urinary tract infection, site not specified; R53.1 Weakness; G91.2 (Idiopathic) normal pressure hydrocephalus; Z98.2 Presence of cerebrospinal fluid drainage device; I10 Essential (primary) hypertension; I25.10 Atherosclerotic heart disease of native coronary artery without angina pectoris; E78.5 Hyperlipidemia, unspecified; E11.9 Type 2 diabetes mellitus without complications; Z79.4 Long term (current) use of insulin
CPT/HCPCS: 36415; 70450; 71045; 80048; 80053; 81001; 82948; 83036; 83605; 83735; 84145; 85025; 85055; 86140; 87040; 87077; 87086; 87088; 87186; 87637; 93005; 96361; 96365; 96372; 96376; 97110; 97161; 97165; 97530; 97535; 99285; A9270; G0378; J0696; J1650; J1815; J7030